=== PATIENT | male | born 1975 | race Caucasian/White ===

== ENCOUNTER 2016-10-08 16:30 | Emergency (ER) | payer SELFPAY ==
[2016-10-08 17:11] VITALS: BP 110/76
--- NOTE | 2016-10-08 17:54 | Emergency Department Report ---
Entered by LYUDMILA PADGETT, acting as scribe for VANDANA THOMPSON NP. HPI - General Chief Complaint: Back Pain/Injury Time Seen by Provider: 10/08/16 17:28 - HPI HPI: 40 y/o male with no significant PMHx c/o low back pain that began 1 day ago. Patient rates pain an 8/10 in severity, which he describes as aching in quality. Patient denies any trauma or injury to back. Denies incontinence, nausea, numbness, and tingling. Denies any radiation of pain. Patient states he is tired, and he requests a work excuse. NKDA. ED Past Medical Hx - Past Medical History Previous Medical History?: No - Social History Smoking Status: Current Every Day Smoker Substance Use Type: None - Medications Home Medications: Home Medications Medication Instructions Recorded Confirmed Last Taken Type Clindamycin [Clindamycin CAP] 300 mg PO Q6H #40 capsule 02/04/13 Unknown Rx HYDROcodone/APAP 5-325 [[place] 1 each PO Q6HR PRN #12 tablet 02/04/13 Unknown Rx 5/325 mg] Ibuprofen [Motrin 800 MG tab] 800 mg PO TID PRN #30 tablet 12/23/14 Unknown Rx Sulfamethoxazole/Trimethoprim 1 each PO BID #20 tablet 02/19/15 Unknown Rx [Bactrim DS TAB] Terbinafine HCl [Lamisil At] 30 gm TP BID #1 tube 04/11/15 Unknown Rx Cyclobenzaprine [Flexeril] 10 mg PO TID PRN #30 tablet 10/08/16 Unknown Rx ED Review of Systems ROS: Stated complaint: BACK PAIN/HEADACHE/DIZZINESS/FATIGUE Other details as noted in HPI Constitutional: no symptoms reported. denies: chills, fever, weakness Eyes: denies: eye pain, eye discharge, vision change ENT: denies: ear pain, throat pain Respiratory: denies: cough, shortness of breath, wheezing Cardiovascular: denies: chest pain, palpitations Endocrine: no symptoms reported Gastrointestinal: denies: abdominal pain, nausea, diarrhea, other (incontinence) Genitourinary: denies: urgency, dysuria Musculoskeletal: back pain (low back pain). denies: joint swelling, arthralgia Skin: denies: rash, lesions Neurological: denies: headache, weakness, numbness, paresthesias, other ( tingling) Psychiatric: denies: anxiety, depression Hematological/Lymphatic: denies: easy bleeding, easy bruising Physical Exam - Physical Exam Vital Signs: Vital Signs 10/08/16 17:08 Temperature 98.5 F Pulse Rate 82 Respiratory 16 Rate Blood Pressure 110/76 O2 Sat by Pulse 100 Oximetry General: General: well nourished, well developed, 40 year old male in no acute distress and nontoxic in appearance Physical Exam: Head: Normocephalic, atraumatic Mouth: Moist mucous membranes Nose: Normal external appearance, no drainage. Neck: Supple, No adenopathy Ears: Normal external inspection. Eyes: Bilateral pupils equal and reactive to light, bilateral EOM intact. Bilateral sclera and conjunctiva without injection. Normal accommodation. Lungs: Clear to auscultation bilaterally, no rhonchi, wheezes, or rales. Normal work of breathing. No use of accessory muscles Back: Normal inspection. FROM. No vertebral or paraspinal tenderness. Extremities: No CCE. +2 pulses. No neurovascular compromise Cardiovascular: S1-S2, regular rate, regular rhythm. No murmurs. 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 Critical care attestation.: If time is entered above; I have spent that time in minutes in the direct care of this critically ill patient, excluding procedure time. ED Disposition Clinical Impression: Strain of muscle, fascia and tendon of lower back, initial encounter Disposition: TO HOME OR SELFCARE Is pt being admited?: No Does the pt Need Aspirin: No Condition: Good Instructions: Low Back Strain (ED) Prescriptions: Cyclobenzaprine [Flexeril] 10 mg PO TID PRN #30 tablet PRN Reason: Muscle Spasm Forms: Work/School Release Form(ED) Time of Disposition: 17:54 This documentation as recorded by the DAYRON hernandez JASMINE,accurately reflects the service I personally performed and the decisions made by , VANDANA THOMPSON, HERMAN.
== END 2016-10-08 19:12 | disposition home or self-care (01) ==
LOC: ED 16:30
DX: S39.012A Strain of muscle, fascia and tendon of lower back, initial encounter (principal); F17.200 Nicotine dependence, unspecified, uncomplicated; X58.XXXA Exposure to other specified factors, initial encounter; Y93.9 Activity, unspecified; Y92.9 Unspecified place or not applicable; Y99.9 Unspecified external cause status
CPT/HCPCS: 99282

== ENCOUNTER 2016-11-06 18:43 | Emergency (ER) | payer SELFPAY ==
[2016-11-06 19:49] VITALS: BP 128/69
[2016-11-06 20:01] LABS: Basophils % (Auto) 0.8 % (0.0-1.8); Eosinophils % (Auto) 4.2 % (0.0-4.3); Hematocrit 42.1 % (35.5-45.6); Hemoglobin 13.7 gm/dl (11.8-15.2); Mean Corpuscular HGB Conc 33 % (32-34); Mean Corpuscular Hemoglobin 29 pg (28-32); Mean Corpuscular Volume 89 fl (84-94); Platelet Count 281 K/mm3 (140-440); Red Blood Count 4.75 M/mm3 (3.65-5.03); Red Cell Distribution Width 13.4 % (13.2-15.2); White Blood Count 14.9 K/mm3 (4.5-11.0)
[2016-11-06 20:17] LABS: Alanine Aminotransferase 21 units/L (7-56); Albumin 4.3 g/dL (3.9-5); Albumin/Globulin Ratio 1.3 %; Alkaline Phosphatase 56 units/L (35-129); Anion Gap 16 mmol/L; BUN/Creatinine Ratio 14.44; Bilirubin,Total < 0.20 mg/dL (0.1-1.2); Blood Urea Nitrogen 13 mg/dL (9-20); Calcium 9.5 mg/dL (8.4-10.2); Carbon Dioxide 28 mmol/L (22-30); Chloride 105.7 mmol/L (98-107); Glucose 69 mg/dL (75-100); Lipase 24 units/L (13-60); Potassium 4.1 mmol/L (3.6-5.0); Sodium 146 mmol/L (137-145); Total Protein 7.5 g/dL (6.3-8.2)
[2016-11-06 20:53] LABS: Bilirubin,Urine NEG (Negative); Blood,Urine NEG (Negative); Ketones,Urine NEG (Negative); Leukocyte Esterase,Urine MOD (Negative); Mucus,Urine FEW /HPF; Nitrite,Urine NEG (Negative); Protein,Urine <15 mg/dL mg/dL (Negative); Urobilinogen,Urine < 2.0 mg/dL (<2.0)
--- NOTE | 2016-11-07 17:08 | ED Elopement Review ---
ED Pt Elopement review - Results review Lab results: Laboratory Tests 11/06/16 11/06/16 11/06/16 19:52 19:52 20:14 WBC 14.9 H RBC 4.75 Hgb 13.7 Hct 42.1 MCV 89 MCH 29 MCHC 33 RDW 13.4 Plt Count 281 Lymph % (Auto) 21.1 [place] % (Auto) 6.1 Eos % (Auto) 4.2 Baso % (Auto) 0.8 Lymph # 3.1 [place] # 0.9 H Eos # 0.6 H Baso # 0.1 Seg Neutrophils % 67.8 Seg Neutrophils # 10.1 H Sodium 146 H Potassium 4.1 Chloride 105.7 Carbon Dioxide 28 Anion Gap 16 BUN 13 Creatinine 0.9 Estimated GFR > 60 BUN/Creatinine Ratio 14.44 Glucose 69 L Calcium 9.5 Total Bilirubin < 0.20 AST 17 ALT 21 Alkaline Phosphatase 56 Total Protein 7.5 Albumin 4.3 Albumin/Globulin Ratio 1.3 Lipase 24 Urine Color Yellow Urine Turbidity Clear Urine pH 5.0 Ur Specific Iron 1.016 Urine Protein <15 mg/dl Urine Glucose (UA) Neg Urine Ketones Neg Urine Blood Neg Urine Nitrite Neg Urine Bilirubin Neg Urine Urobilinogen < 2.0 Ur Leukocyte Esterase Mod Urine WBC (Auto) 6.0 Urine RBC (Auto) 3.0 U Epithel Cells (Auto) < 1.0 Urine Mucus Few - Call Back decision Pt Call Back Decision: Pt to F/U with PMD
== END 2016-11-07 00:49 | disposition left against medical advice (07) ==
LOC: ED 18:43
DX: K21.9 Gastro-esophageal reflux disease without esophagitis (principal); Z53.21 Procedure and treatment not carried out due to patient leaving prior to being seen by health care provider
CPT/HCPCS: 36415; 80053; 81001; 83690; 85025

== ENCOUNTER 2016-11-16 13:20 | Emergency (ER) | payer SELFPAY ==
--- NOTE | 2016-11-16 13:59 | Emergency Department Report ---
Chief Complaint: Nausea/Vomiting/Diarrhea Stated Complaint: LT ARM RASH /HEADACHE/LOOSE STOOL Time Seen by Provider: 11/16/16 13:56 - HPI History of Present Illness: pt states he has had diarrhea x 1 week. pt also c/o rash to left arm - ROS Review of Systems: + fatigue - gu symptoms - abd pain - Exam Physical Exam: pt looks well, non toxic steady gait scabs noted to L FA MSE screening note: Focused history and physical exam performed. Due to findings the following was ordered: labs ED Disposition for MSE Condition: Stable
[2016-11-16 14:00] VITALS: BP 107/67
[2016-11-16 14:56] LABS: Basophils % (Auto) 1.4 % (0.0-1.8); Eosinophils % (Auto) 6.7 % (0.0-4.3); Hematocrit 43.2 % (35.5-45.6); Hemoglobin 14.5 gm/dl (11.8-15.2); Mean Corpuscular HGB Conc 34 % (32-34); Mean Corpuscular Hemoglobin 30 pg (28-32); Mean Corpuscular Volume 89 fl (84-94); Platelet Count 301 K/mm3 (140-440); Red Blood Count 4.86 M/mm3 (3.65-5.03); Red Cell Distribution Width 13.6 % (13.2-15.2); White Blood Count 8.2 K/mm3 (4.5-11.0)
[2016-11-16 15:10] LABS: Alanine Aminotransferase 20 units/L (7-56); Albumin 4.2 g/dL (3.9-5); Albumin/Globulin Ratio 1.2 %; Alkaline Phosphatase 51 units/L (35-129); Anion Gap 14 mmol/L; BUN/Creatinine Ratio 12.22; Blood Urea Nitrogen 11 mg/dL (9-20); Calcium 9.4 mg/dL (8.4-10.2); Carbon Dioxide 31 mmol/L (22-30); Chloride 99.1 mmol/L (98-107); Glucose 85 mg/dL (75-100); Lipase 33 units/L (13-60); Potassium 3.9 mmol/L (3.6-5.0); Sodium 140 mmol/L (137-145); Total Protein 7.7 g/dL (6.3-8.2)
[2016-11-16] MEDS ORDERED: DECADRON IM ONE (17:52)
[2016-11-16] MEDS ORDERED: BENADRYL PO ONE (17:52)
--- NOTE | 2016-11-16 18:40 | Emergency Department Report ---
ED Rash HPI - HPI Chief Complaint: Skin Rash Stated Complaint: LT ARM RASH /HEADACHE/LOOSE STOOL Time Seen by Provider: 11/16/16 13:56 Duration: 1 week Location: Upper Extremities (left inner forearm) Suspected Cause: Plant Rash Symptoms: Yes Itching, No Facial Swelling, No Tongue/Oral Swelling, No Breathing Difficulties, No Choking Sensation, No Wheezing/Dyspnea, No Peeling, No Blistering, No Fever, No Lightheaded, No Malaise, No Myalgias Severity: mild Other History: 41 year old male presents to ED with left forearm rash consistent with poison [place]. patient states he was having diarrhea which is starting to resolve. patient denies abdominal pain, N/V, fevers. patient states he went camping in the [facility] last week. patient is stable, neurologically intact and in no acute distress. ED Review of Systems ROS: Stated complaint: LT ARM RASH /HEADACHE/LOOSE STOOL Other details as noted in HPI Constitutional: denies: chills, fever Eyes: denies: eye pain, eye discharge, vision change ENT: denies: ear pain, throat pain Respiratory: denies: cough, shortness of breath, wheezing Cardiovascular: denies: chest pain, palpitations Endocrine: no symptoms reported Gastrointestinal: diarrhea. denies: abdominal pain, nausea Genitourinary: denies: urgency, dysuria Musculoskeletal: denies: back pain, joint swelling, arthralgia Skin: rash. denies: lesions Neurological: denies: headache, weakness, paresthesias Psychiatric: denies: anxiety, depression Hematological/Lymphatic: denies: easy bleeding, easy bruising ED Past Medical Hx - Past Medical History Previous Medical History?: Yes Additional medical history: acid reflux - Surgical History Past Surgical History?: No - Social History Smoking Status: Current Every Day Smoker Substance Use Type: Alcohol - Medications Home Medications: Home Medications Medication Instructions Recorded Confirmed Last Taken Type Clindamycin [Clindamycin CAP] 300 mg PO Q6H #40 capsule 02/04/13 Unknown Rx HYDROcodone/APAP 5-325 [[place] 1 each PO Q6HR PRN #12 tablet 02/04/13 Unknown Rx 5/325 mg] Ibuprofen [Motrin 800 MG tab] 800 mg PO TID PRN #30 tablet 12/23/14 Unknown Rx Sulfamethoxazole/Trimethoprim 1 each PO BID #20 tablet 02/19/15 Unknown Rx [Bactrim DS TAB] Terbinafine HCl [Lamisil At] 30 gm TP BID #1 tube 04/11/15 Unknown Rx Cyclobenzaprine [Flexeril] 10 mg PO TID PRN #30 tablet 10/08/16 Unknown Rx Triamcinolone 0.1% [Kenalog 0.1% 1 applic TP TID #1 tube 11/16/16 Unknown Rx CREAM] Rash Exam - Exam General: Vital signs noted. No distress. Alert and acting appropriately. HEENT: No Periorbital Edema, No Conjuctival Injection, No Chemosis, No Perioral Edema, No Tongue Edema, No Uvular Edema, No Compromised Airway, No Drooling Lungs: Yes Good Air Exchange (Normal Breath Sounds), No Wheezes, No [place]chi, No Stridor, No Cough, No Labored Respirations, No Retractions, No Use of Accessory Muscles, No Other Abnormal Lung Sounds Heart: Yes Regular, No Murmur Skin: Yes Maculopapular Rash, No Urticarial Rash, No Morbilliform rash, No [place] (e), No Excoriations, No Weeping, No Tenderness, No Erythema, No Edema, No Encrustations Other: Positive: Abdomen Normal, Neurologic Normal, Musculoskeletal Normal ED Course Vital Signs 11/16/16 13:55 Temperature 98.4 F Pulse Rate 65 Respiratory 20 Rate Blood Pressure 107/67 O2 Sat by Pulse 99 Oximetry ED Medical Decision Making - Lab Data Result diagrams: 11/16/16 14:39 11/16/16 14:39 - Medical Decision Making 41 year old male presents to ED with left forearm rash consistent with poison [place]. patient states rash is beginning to resolve but still itches. patient states he had diarrhea 2 weeks ago but it is also starting to resolve. I have offered to collect stool sample from patient and patient has refused stating " he has to go to work and doesnt have to defecate right now". patient is stable, neurologically intact and in no acute distress. Critical care attestation.: If time is entered above; I have spent that time in minutes in the direct care of this critically ill patient, excluding procedure time. ED Disposition Clinical Impression: Poison [place] dermatitis Disposition: DC-01 TO HOME OR SELFCARE Is pt being admited?: No Does the pt Need Aspirin: No Condition: Stable Prescriptions: Triamcinolone 0.1% [Kenalog 0.1% CREAM] 1 applic TP TID #1 tube Referrals: PRIMARY CARE,MD [Primary Care Provider] - 3-5 Days Forms: Work/School Release Form(ED)
== END 2016-11-16 18:31 | disposition home or self-care (01) ==
LOC: ED 13:20
DX: L23.7 Allergic contact dermatitis due to plants, except food (principal); K21.9 Gastro-esophageal reflux disease without esophagitis; F17.200 Nicotine dependence, unspecified, uncomplicated
CPT/HCPCS: 36415; 80053; 83690; 85025; 96372; 99283; J1100

== ENCOUNTER 2016-12-15 14:40 | Emergency (ER) | payer OTHER ==
--- NOTE | 2016-12-15 15:20 | Emergency Department Report ---
Chief Complaint: Headache Stated Complaint: FATIGUE/HEADACHE/DISORIENTED/WEAK Time Seen by Provider: 12/15/16 15:18 - HPI History of Present Illness: pt states he was seen 1 month ago for similar symptoms - ROS Review of Systems: + fatigue - diarrhea - Exam Vital Signs: Vital Signs 12/15/16 15:11 Temperature 98.5 F Pulse Rate 91 H Respiratory 16 Rate Blood Pressure 99/56 O2 Sat by Pulse 98 Oximetry Physical Exam: pt looks well, non toxic. no acute distress MSE screening note: Focused history and physical exam performed. Due to findings the following was ordered: labs ED Disposition for MSE Condition: Stable
[2016-12-15 15:35] LABS: Basophils % (Auto) 0.9 % (0.0-1.8); Eosinophils % (Auto) 3.8 % (0.0-4.3); Hematocrit 41.1 % (35.5-45.6); Hemoglobin 13.8 gm/dl (11.8-15.2); Mean Corpuscular HGB Conc 34 % (32-34); Mean Corpuscular Hemoglobin 30 pg (28-32); Mean Corpuscular Volume 88 fl (84-94); Platelet Count 304 K/mm3 (140-440); Red Blood Count 4.69 M/mm3 (3.65-5.03); Red Cell Distribution Width 13.7 % (13.2-15.2); White Blood Count 13.5 K/mm3 (4.5-11.0)
[2016-12-15 15:57] LABS: Alanine Aminotransferase 23 units/L (7-56); Albumin/Globulin Ratio 1.3 %; Alkaline Phosphatase 48 units/L (35-129); Anion Gap 17 mmol/L; BUN/Creatinine Ratio 15.55; Blood Urea Nitrogen 14 mg/dL (9-20); Carbon Dioxide 29 mmol/L (22-30); Chloride 103.3 mmol/L (98-107); Creatine Kinase 109 units/L (55-170); Glucose 71 mg/dL (75-100); Potassium 3.8 mmol/L (3.6-5.0); Sodium 145 mmol/L (137-145); Total Protein 7.2 g/dL (6.3-8.2)
--- NOTE | 2016-12-15 21:21 | Emergency Department Report ---
ED Headache HPI - General Chief Complaint: Headache Stated Complaint: FATIGUE/HEADACHE/DISORIENTED/WEAK Time Seen by Provider: 12/15/16 15:18 - History of Present Illness Initial Comments: Patient is a 21-year-old male with no past medical history who presents to the ED complaining of headache for the past week. Patient states headache is generalized in nature. Patient states that C [place] spell tired and generalized body ache. Patient states his work and nonstop since tired all the time. He denies fevers/chills/nausea/vomiting/abdominal pain/chest pain/runny nose/ throat pain Timing/Duration: 1 week Quality: moderate Head Injury Location: frontal Recent Head Trauma: no recent headache/trauma Associated Symptoms: denies: confusion, fatigue, facial pain, nasal congestion, rash, seizures Allergies/Adverse Reactions: Allergies No Known Allergies Allergy (Unverified 02/04/13 16:17) Home Medications: Ambulatory Orders Clindamycin [Clindamycin CAP] 300 mg PO Q6H #40 capsule 02/04/13 HYDROcodone/APAP 5-325 [[place] 5/325 mg] 1 each PO Q6HR PRN #12 tablet 02/04/13 Sulfamethoxazole/Trimethoprim [Bactrim DS TAB] 1 each PO BID #20 tablet Terbinafine HCl [Lamisil At] 30 gm TP BID #1 tube 04/11/15 Triamcinolone 0.1% [Kenalog 0.1% CREAM] 1 applic TP TID #1 tube 11/16/16 Cyclobenzaprine [Flexeril 10 MG TAB] 10 mg PO QHS PRN #20 tablet 12/15/16 Ibuprofen [Motrin 800 MG tab] 800 mg PO TID PRN #30 tablet 12/15/16 Pseudoephedrine ER [Sudafed 12 Hr] 120 mg PO BID #30 tablet.er 12/15/16 ED Review of Systems ROS: Stated complaint: FATIGUE/HEADACHE/DISORIENTED/WEAK Other details as noted in HPI Constitutional: denies: chills, fever Eyes: denies: eye pain, eye discharge, vision change ENT: denies: ear pain, throat pain Respiratory: denies: cough, shortness of breath, wheezing Cardiovascular: denies: chest pain, palpitations Endocrine: no symptoms reported Gastrointestinal: denies: abdominal pain, nausea, diarrhea Genitourinary: denies: urgency, dysuria, frequency, hematuria Musculoskeletal: denies: back pain, joint swelling, arthralgia Skin: denies: rash, lesions Neurological: headache. denies: weakness, numbness, paresthesias, confusion Psychiatric: denies: anxiety, depression Hematological/Lymphatic: denies: easy bleeding, easy bruising ED Past Medical Hx - Past Medical History Previous Medical History?: Yes Additional medical history: acid reflux - Surgical History Past Surgical History?: No - Social History Smoking Status: Current Every Day Smoker Substance Use Type: None - Medications Home Medications: Home Medications Medication Instructions Recorded Confirmed Last Taken Type Clindamycin [Clindamycin CAP] 300 mg PO Q6H #40 capsule 02/04/13 Unknown Rx HYDROcodone/APAP 5-325 [[place] 1 each PO Q6HR PRN #12 tablet 02/04/13 Unknown Rx 5/325 mg] Sulfamethoxazole/Trimethoprim 1 each PO BID #20 tablet 02/19/15 Unknown Rx [Bactrim DS TAB] Terbinafine HCl [Lamisil At] 30 gm TP BID #1 tube 04/11/15 Unknown Rx Triamcinolone 0.1% [Kenalog 0.1% 1 applic TP TID #1 tube 11/16/16 Unknown Rx CREAM] Cyclobenzaprine [Flexeril 10 MG 10 mg PO QHS PRN #20 tablet 12/15/16 Unknown Rx TAB] Ibuprofen [Motrin 800 MG tab] 800 mg PO TID PRN #30 tablet 12/15/16 Unknown Rx Pseudoephedrine ER [Sudafed 12 Hr] 120 mg PO BID #30 tablet.er 12/15/16 Unknown Rx ED Physical Exam - General Limitations: No Limitations General appearance: alert, in no apparent distress - Head Head exam: Present: atraumatic, normocephalic - Eye Eye exam: Present: normal appearance, PERRL, EOMI - ENT ENT exam: Present: mucous membranes moist - Neck Neck exam: Present: normal inspection, full ROM - Respiratory Respiratory exam: Present: normal lung sounds bilaterally. Absent: respiratory distress, wheezes, rales, rhonchi - Cardiovascular Cardiovascular Exam: Present: regular rate, normal rhythm. Absent: systolic murmur, diastolic murmur, rubs, gallop - GI/Abdominal GI/Abdominal exam: Present: soft, normal bowel sounds - Rectal Rectal exam: Present: deferred - Extremities Exam Extremities exam: Present: normal inspection - Back Exam Back exam: Present: normal inspection - Neurological Exam Neurological exam: Present: alert, oriented X3, CN II-XII intact, normal gait, reflexes normal - Expanded Neurological Exam Expanded Patient oriented to: Present: person, place, time Speech: Present: fluid speech Cranial nerves: EOM's Intact: Normal, Facial Sensation: Normal Cerebellar function: Finger to Nose: Normal, Heel to [place]: Normal Sensory exam: Upper Extremity Light Touch: Normal, Upper Extremity Temperature: Normal, Lower Extremity Light Touch: Normal, Lower Extremity Temperature: Normal Motor strength exam: RUE: 5, LUE: 5, RLE: 5, LLE: 5 DTR: knee (R): 2+, knee (L): 2+ Best Eye Response ([place]): (4) open spontaneously Best Motor Response ([place]): (6) obeys commands Best Verbal Response ([place]): (5) oriented [place] Total: 15 - Psychiatric Psychiatric exam: Present: normal affect, normal mood - Skin Skin exam: Present: warm, dry, intact, normal color. Absent: rash ED Course Vital Signs 12/15/16 12/15/16 15:11 21:55 Temperature 98.5 F 98.1 F Pulse Rate 91 H 96 H Respiratory 16 16 Rate Blood Pressure 99/56 Blood Pressure 109/71 [Right] O2 Sat by Pulse 98 97 Oximetry ED Medical Decision Making - Lab Data Result diagrams: 12/15/16 15:21 12/15/16 15:21 Laboratory Last Values WBC 13.5 K/mm3 (4.5-11.0) H 12/15/16 15:21 RBC 4.69 M/mm3 (3.65-5.03) 12/15/16 15:21 Hgb 13.8 gm/dl (11.8-15.2) 12/15/16 15:21 Hct 41.1 % (35.5-45.6) 12/15/16 15:21 MCV 88 fl (84-94) 12/15/16 15:21 MCH 30 pg (28-32) 12/15/16 15:21 MCHC 34 % (32-34) 12/15/16 15:21 RDW 13.7 % (13.2-15.2) 12/15/16 15:21 Plt Count 304 K/mm3 (140-440) 12/15/16 15:21 Lymph % (Auto) 26.6 % (13.4-35.0) 12/15/16 15:21 [place] % (Auto) 8.3 % (0.0-7.3) H 12/15/16 15:21 Eos % (Auto) 3.8 % (0.0-4.3) 12/15/16 15:21 Baso % (Auto) 0.9 % (0.0-1.8) 12/15/16 15:21 Lymph # 3.6 K/mm3 (1.2-5.4) 12/15/16 15:21 [place] # 1.1 K/mm3 (0.0-0.8) H 12/15/16 15:21 Eos # 0.5 K/mm3 (0.0-0.4) H 12/15/16 15:21 Baso # 0.1 K/mm3 (0.0-0.1) 12/15/16 15:21 Seg Neutrophils % 60.4 % (40.0-70.0) 12/15/16 15:21 Seg Neutrophils # 8.1 K/mm3 (1.8-7.7) H 12/15/16 15:21 Sodium 145 mmol/L (137-145) 12/15/16 15:21 Potassium 3.8 mmol/L (3.6-5.0) 12/15/16 15:21 Chloride 103.3 mmol/L (98-107) 12/15/16 15:21 Carbon Dioxide 29 mmol/L (22-30) 12/15/16 15:21 Anion Gap 17 mmol/L 12/15/16 15:21 BUN 14 mg/dL (9-20) 12/15/16 15:21 Creatinine 0.9 mg/dL (0.8-1.5) 12/15/16 15:21 Estimated GFR > 60 ml/min 12/15/16 15:21 BUN/Creatinine Ratio 15.55 % 12/15/16 15:21 Glucose 71 mg/dL (75-100) L 12/15/16 15:21 Calcium 9.0 mg/dL (8.4-10.2) 08/15/17 15:21 Total Bilirubin 0.20 mg/dL (0.1-1.2) 12/15/16 15:21 AST 15 units/L (5-40) 12/15/16 15:21 ALT 23 units/L (7-56) 12/15/16 15:21 Alkaline Phosphatase 48 units/L (35-129) 12/15/16 15:21 Total Creatine Kinase 109 units/L (55-170) 12/15/16 15:21 Total Protein 7.2 g/dL (6.3-8.2) 12/15/16 15:21 Albumin 4.0 g/dL (3.9-5) 12/15/16 15:21 Albumin/Globulin Ratio 1.3 % 12/15/16 15:21 - Medical Decision Making 41-year-old male presents today acutely stress headache ED course: Labs all within normal limits. Discussed findings with the patient. Discussed with patient to get proper rest. Discussed home medications Discussed the patient's symptoms worsen or new symptoms arise to return to ED for evaluation Discuss to follow up with primary care physician. Vital signs are normal patient is in no acute distress Critical care attestation.: If time is entered above; I have spent that time in minutes in the direct care of this critically ill patient, excluding procedure time. ED Disposition Clinical Impression: Headache Qualifiers: Headache type: tension-type Headache chronicity pattern: acute headache Intractability: not intractable Qualified Code(s): G44.209 - Tension-type headache, unspecified, not intractable Disposition: DC-01 TO HOME OR SELFCARE Is pt being admited?: No Does the pt Need Aspirin: No Condition: Stable Instructions: Sinusitis (ED), Acute Headache (ED), Cold Symptoms (ED) Prescriptions: Cyclobenzaprine [Flexeril 10 MG TAB] 10 mg PO QHS PRN #20 tablet PRN Reason: Muscle Spasm Ibuprofen [Motrin 800 MG tab] 800 mg PO TID PRN #30 tablet PRN Reason: Pain Pseudoephedrine ER [Sudafed 12 Hr] 120 mg PO BID #30 tablet.er Referrals: PRIMARY CARE, [Primary Care Provider] - 3-5 Days [facility] [Outside] - 3-5 Days [facility] [Outside] - 3-5 Days [facility] [Outside] - 3-5 Days Forms: Work/School Release Form(ED) Time of Disposition: 21:30
[2016-12-15 22:19] VITALS: BP 109/71
== END 2016-12-15 21:55 | disposition home or self-care (01) ==
LOC: ED 14:40
DX: G44.209 Tension-type headache, unspecified, not intractable (principal); K21.9 Gastro-esophageal reflux disease without esophagitis; F17.200 Nicotine dependence, unspecified, uncomplicated
CPT/HCPCS: 36415; 80053; 82550; 85025; 99283

== ENCOUNTER 2017-02-01 17:53 | Emergency (ER) | payer OTHER ==
[2017-02-01 20:34] LABS: Basophils % (Auto) 0.8 % (0.0-1.8); Hematocrit 40.8 % (35.5-45.6); Hemoglobin 13.7 gm/dl (11.8-15.2); Mean Corpuscular HGB Conc 34 % (32-34); Mean Corpuscular Hemoglobin 29 pg (28-32); Mean Corpuscular Volume 87 fl (84-94); Platelet Count 302 K/mm3 (140-440); Red Cell Distribution Width 13.5 % (13.2-15.2); White Blood Count 12.2 K/mm3 (4.5-11.0)
[2017-02-01 20:52] LABS: Alanine Aminotransferase 22 units/L (7-56); Albumin 4.3 g/dL (3.9-5); Albumin/Globulin Ratio 1.3 %; Alkaline Phosphatase 49 units/L (35-129); Anion Gap 17 mmol/L; BUN/Creatinine Ratio 21; Blood Urea Nitrogen 19 mg/dL (9-20); Calcium 9.3 mg/dL (8.4-10.2); Carbon Dioxide 27 mmol/L (22-30); Chloride 102.6 mmol/L (98-107); Glucose 102 mg/dL (75-100); Potassium 4.2 mmol/L (3.6-5.0); Sodium 142 mmol/L (137-145); Total Protein 7.6 g/dL (6.3-8.2)
--- NOTE | 2017-02-02 07:35 | Emergency Department Report ---
ED Abdominal Pain HPI - General Chief Complaint: Abdominal Pain Stated Complaint: DIARRHEA/ANDRES/FATIGUE Time Seen by Provider: 02/02/17 07:35 Source: patient Mode of arrival: Ambulatory Limitations: No Limitations - History of Present Illness Initial Comments: Patient reports that he has diarrhea 1 day. He said he had diarrhea 3 times today and stated that he ate something bad. He also stated that he is overwhelmed at times. Denies any suicide or homicide ideation. Past medical history of acid reflux denies any nausea or vomiting. He said he was having some abdominal cramping but none now. Denies any urinary burning frequency or urgency. Denies any blood in his urine. Denies any back pain. Denies any fever or chills MD Complaint: abdominal pain ( which has resolved), other (diarrhea) Onset/Timin -: days(s) Location: [facility] Radiation: none Migration to: no migration Severity scale (0 -10): 0 Quality: cramping Consistency: intermittent Context: possible food poisoning Associated Symptoms: diarrhea. denies: nausea, vomiting, fever, chills, constipation, dysuria, hematemesis, hematochezia, melena, hematuria, anorexia, syncope Treatments Prior to Arrival: other (none) - Related Data Previous Rx's Medication Instructions Recorded Last Taken Type Clindamycin [Clindamycin CAP] 300 mg PO Q6H #40 capsule 02/04/13 Unknown Rx HYDROcodone/APAP 5-325 [[place] 1 each PO Q6HR PRN #12 tablet 02/04/13 Unknown Rx 5/325 mg] Terbinafine HCl [Lamisil At] 30 gm TP BID #1 tube 04/11/15 Unknown Rx Triamcinolone 0.1% [Kenalog 0.1% 1 applic TP TID #1 tube 11/16/16 Unknown Rx CREAM] Cyclobenzaprine [Flexeril 10 MG 10 mg PO QHS PRN #20 tablet 12/15/16 Unknown Rx TAB] Ibuprofen [Motrin 800 MG tab] 800 mg PO TID PRN #30 tablet 12/15/16 Unknown Rx Pseudoephedrine ER [Sudafed 12 Hr] 120 mg PO BID #30 tablet.er 12/15/16 Unknown Rx Sulfamethoxazole/Trimethoprim 1 each PO BID #10 tablet 02/02/17 Unknown Rx [Bactrim DS TAB] Allergies Allergy/AdvReac Type Severity Reaction Status Date / Time No Known Allergies Allergy Unverified 02/04/13 16:17 ED Review of Systems ROS: Stated complaint: DIARRHEA/ANDRES/FATIGUE Other details as noted in HPI Comment: All other systems reviewed and negative Constitutional: no symptoms reported Respiratory: no symptoms reported Cardiovascular: denies: chest pain, palpitations, dyspnea on exertion, orthopnea , edema, syncope, paroxysmal nocturnal dyspnea Gastrointestinal: abdominal pain (episodic abdominal cramps), diarrhea. denies : nausea, vomiting, constipation, hematemesis, melena, hematochezia Genitourinary: denies: urgency, dysuria, frequency, hematuria, discharge, testicular pain, testicular mass Musculoskeletal: denies: back pain, arthralgia Skin: denies: rash Neurological: denies: headache, abnormal gait, vertigo Psychiatric: anxiety (sometimes) ED Past Medical Hx - Past Medical History Previous Medical History?: Yes Additional medical history: acid reflux - Surgical History Past Surgical History?: No - Family History Family history: no significant - Social History Smoking Status: Never Smoker Substance Use Type: None - Medications Home Medications: Home Medications Medication Instructions Recorded Confirmed Last Taken Type Clindamycin [Clindamycin CAP] 300 mg PO Q6H #40 capsule 02/04/13 Unknown Rx HYDROcodone/APAP 5-325 [[place] 1 each PO Q6HR PRN #12 tablet 02/04/13 Unknown Rx 5/325 mg] Terbinafine HCl [Lamisil At] 30 gm TP BID #1 tube 04/11/15 Unknown Rx Triamcinolone 0.1% [Kenalog 0.1% 1 applic TP TID #1 tube 11/16/16 Unknown Rx CREAM] Cyclobenzaprine [Flexeril 10 MG 10 mg PO QHS PRN #20 tablet 12/15/16 Unknown Rx TAB] Ibuprofen [Motrin 800 MG tab] 800 mg PO TID PRN #30 tablet 12/15/16 Unknown Rx Pseudoephedrine ER [Sudafed 12 Hr] 120 mg PO BID #30 tablet.er 12/15/16 Unknown Rx Sulfamethoxazole/Trimethoprim 1 each PO BID #10 tablet 02/02/17 Unknown Rx [Bactrim DS TAB] ED Physical Exam - General Limitations: No Limitations General appearance: alert, in no apparent distress - Head Head exam: Present: atraumatic, normocephalic, normal inspection - Eye Eye exam: Present: normal appearance, PERRL, EOMI. Absent: scleral icterus, conjunctival injection, periorbital swelling, periorbital tenderness Pupils: Present: normal accommodation - ENT ENT exam: Present: normal exam, normal orophraynx, mucous membranes moist, TM's normal bilaterally, normal external ear exam - Neck Neck exam: Present: normal inspection, full ROM. Absent: tenderness, meningismus, lymphadenopathy - Respiratory Respiratory exam: Present: normal lung sounds bilaterally. Absent: respiratory distress, chest wall tenderness - Cardiovascular Cardiovascular Exam: Present: regular rate, normal rhythm, normal heart sounds. Absent: systolic murmur, diastolic murmur - GI/Abdominal GI/Abdominal exam: Present: soft, normal bowel sounds. Absent: distended, tenderness, guarding, rebound, rigid, organomegaly, mass, bruit, pulsatile mass , hernia - Extremities Exam Extremities exam: Present: normal inspection, full ROM, normal capillary refill , other (no clubbing cyanosis or edema. Pulses). Absent: tenderness, pedal edema, joint swelling, calf tenderness - Back Exam Back exam: Present: normal inspection, full ROM. Absent: tenderness, CVA tenderness (R), CVA tenderness (L), muscle spasm, paraspinal tenderness, vertebral tenderness, rash noted - Neurological Exam Neurological exam: Present: alert, oriented X3, normal gait, reflexes normal. Absent: motor sensory deficit - Psychiatric Psychiatric exam: Present: normal affect, normal mood - Skin Skin exam: Present: warm, dry, intact, normal color. Absent: rash ED Course Vital Signs 02/01/17 02/01/17 02/02/17 19:58 20:01 07:52 Temperature 98.2 F 98.2 F 97.8 F Pulse Rate 93 H 99 H 62 Respiratory 18 18 17 Rate Blood Pressure 123/56 Blood Pressure 123/56 95/51 [Left] O2 Sat by Pulse 99 98 98 Oximetry 02/02/17 02/02/17 09:49 11:12 Temperature Pulse Rate Respiratory Rate Blood Pressure Blood Pressure 98/78 110/65 [Left] O2 Sat by Pulse Oximetry - Reevaluation(s) Reevaluation #1: 02/02/17 09:46 Patient orally challenge at emergency room and was able to tolerate. He had no diarrhea since is then emergency room. I discussed with patient that he is mildly dehydrated and needs to drink more fluids and that he has a small amount of white blood cells in his urine. Patient blood pressure is low suspect from dehydration therefore he will receive 1 L of normal saline and will be if reevaluated. Reevaluation #2: 02/02/17 11:30 Patient received 1 L of IV fluid for dehydration and low blood pressure which is low blood pressure has resolved. He is stable at present and I discussed with him that he needs to follow up with primary care physician in 2-3 days. ED Medical Decision Making - Lab Data Result diagrams: 02/01/17 20:19 02/01/17 20:19 Lab Results 02/01/17 02/01/17 02/02/17 Range/Units 20:19 20:19 08:50 WBC 12.2 H (4.5-11.0) K/mm3 RBC 4.70 (3.65-5.03) M/mm3 Hgb 13.7 (11.8-15.2) gm/dl Hct 40.8 (35.5-45.6) % MCV 87 (84-94) fl MCH 29 (28-32) pg MCHC 34 (32-34) % RDW 13.5 (13.2-15.2) % Plt Count 302 (140-440) K/mm3 Lymph % (Auto) 22.2 (13.4-35.0) % [place] % (Auto) 9.4 H (0.0-7.3) % Eos % (Auto) 4.0 (0.0-4.3) % Baso % (Auto) 0.8 (0.0-1.8) % Lymph # 2.7 (1.2-5.4) K/mm3 [place] # 1.1 H (0.0-0.8) K/mm3 Eos # 0.5 H (0.0-0.4) K/mm3 Baso # 0.1 (0.0-0.1) K/mm3 Seg Neutrophils % 63.6 (40.0-70.0) % Seg Neutrophils # 7.8 H (1.8-7.7) K/mm3 Sodium 142 (137-145) mmol/L Potassium 4.2 (3.6-5.0) mmol/L Chloride 102.6 (98-107) mmol/L Carbon Dioxide 27 (22-30) mmol/L Anion Gap 17 mmol/L BUN 19 (9-20) mg/dL Creatinine 0.9 (0.8-1.5) mg/dL Estimated GFR > 60 ml/min BUN/Creatinine Ratio 21 % Glucose 102 H (75-100) mg/dL Calcium 9.3 (8.4-10.2) mg/dL Total Bilirubin 0.30 (0.1-1.2) mg/dL AST 21 (5-40) units/L ALT 22 (7-56) units/L Alkaline Phosphatase 49 (35-129) units/L Total Protein 7.6 (6.3-8.2) g/dL Albumin 4.3 (3.9-5) g/dL Albumin/Globulin Ratio 1.3 % Urine Color Yellow (Yellow) Urine Turbidity Clear (Clear) Urine pH 5.0 (5.0-7.0) Ur Specific [place] 1.031 H (1.003-1.030) Urine Protein <15 mg/dl (Negative) mg/dL Urine Glucose (UA) Neg (Negative) mg/dL Urine Ketones Tr (Negative) mg/dL Urine Blood Neg (Negative) Urine Nitrite Neg (Negative) Urine Bilirubin Neg (Negative) Urine Urobilinogen 2.0 (<2.0) mg/dL Ur Leukocyte Esterase Neg (Negative) Urine WBC (Auto) 8.0 H (0.0-6.0) /HPF Urine RBC (Auto) 6.0 (0.0-6.0) /HPF U Epithel Cells (Auto) < 1.0 (0-13.0) /HPF Hyaline Casts 3 /LPF Urine Mucus 3+ /HPF Urine culture sent - Medical Decision Making ED course: PT With episodic diarrhea that has resolved. Pt Also with episodic abdominal cramping to left lower quadrant which has resolved. Lab work showed that he has mild elevation in white count at 12.2. His chemistry is stable and his urine show that he has mild dehydration with trace ketone and specific gravity of 1.031 urine white count is at 8.0 which is elevated. leukocyte Estrace is negative blood is negative nitrate is negative. Discussed with patient that he needs to increase his fluid intake and I discussed with him his urine results. I instructed him that I'll put him on medication for urinary tract infection and he needs to drink at least 2-3 L of fluid per day. Blood pressure is mildly low and he is asymptomatic. He received 1 L of normal saline and now his blood pressures normalized. I instructed patient that he definitely to follow-up and if he does not have a primary care that he'll need to follow-up at [facility] ([place], [place]). He was nondistended discharge diagnosis and treatment plan and discharged home in stable condition with prescription for Bactrim to treat white blood cell in urine. Critical care attestation.: If time is entered above; I have spent that time in minutes in the direct care of this critically ill patient, excluding procedure time. ED Disposition Clinical Impression: Abdominal cramping, Mild dehydration, Pyuria Diarrhea Qualifiers: Diarrhea type: unspecified type Qualified Code(s): R19.7 - Diarrhea, unspecified Disposition: TO HOME OR SELFCARE Is pt being admited?: No Does the pt Need Aspirin: No Condition: Stable Instructions: Dehydration (ED), Urinary Tract Infection in Men (ED), Gastroenteritis (ED), Food Poisoning (ED), Acute Diarrhea (ED), Nutrition Tips for Relief of Diarrhea (ED) Additional Instructions: Pls eats diet to include banana rice, applesauce and toast You have white blood cell in urine and he should takeBactrim DSone tablet twice a day for 5 days Make sure he drinks 2-3 L of fluid per day Follow-up at [facility] ([place], [place]) in 2-3 days Prescriptions: Sulfamethoxazole/Trimethoprim [Bactrim DS TAB] 1 each PO BID #10 tablet Referrals: PRIMARY CARE, [Primary Care Provider] - 2-3 Days [facility] [Outside] - 2-3 Days Forms: Work/School Release Form(ED)
[2017-02-02 09:07] LABS: Bilirubin,Urine NEG (Negative); Blood,Urine NEG (Negative); Ketones,Urine TR mg/dL (Negative); Leukocyte Esterase,Urine NEG (Negative); Mucus,Urine 3+ /HPF; Nitrite,Urine NEG (Negative); Protein,Urine <15 mg/dL mg/dL (Negative)
[2017-02-02] MEDS ORDERED: NACL 0.9% 1000 ML 1,000 ML IV ONE (09:51)
[2017-02-02 11:12] VITALS: BP 110/65
== END 2017-02-02 11:45 | disposition home or self-care (01) ==
LOC: ED 17:53
DX: R19.7 Diarrhea, unspecified (principal); R10.32 Left lower quadrant pain; N39.0 Urinary tract infection, site not specified; E86.0 Dehydration; K21.9 Gastro-esophageal reflux disease without esophagitis
CPT/HCPCS: 36415; 80053; 81001; 85025; 87086; 96360; 99283; J7030

== ENCOUNTER 2017-03-18 11:53 | Emergency (ER) | payer SELFPAY ==
[2017-03-18 12:19] LABS: Basophils % (Auto) 0.7 % (0.0-1.8); Eosinophils % (Auto) 3.3 % (0.0-4.3); Hematocrit 45.6 % (35.5-45.6); Hemoglobin 14.9 gm/dl (11.8-15.2); Mean Corpuscular HGB Conc 33 % (32-34); Mean Corpuscular Hemoglobin 29 pg (28-32); Mean Corpuscular Volume 88 fl (84-94); Platelet Count 331 K/mm3 (140-440); Red Blood Count 5.17 M/mm3 (3.65-5.03); Red Cell Distribution Width 13.5 % (13.2-15.2); White Blood Count 10.3 K/mm3 (4.5-11.0)
[2017-03-18 12:41] LABS: Alanine Aminotransferase 19 units/L (7-56); Albumin 4.1 g/dL (3.9-5); Albumin/Globulin Ratio 1.2 %; Alkaline Phosphatase 49 units/L (35-129); Anion Gap 12 mmol/L; BUN/Creatinine Ratio 13; Blood Urea Nitrogen 10 mg/dL (9-20); Carbon Dioxide 30 mmol/L (22-30); Glucose 125 mg/dL (75-100); Lipase 18 units/L (13-60); Potassium 4.4 mmol/L (3.6-5.0); Sodium 140 mmol/L (137-145); Total Protein 7.4 g/dL (6.3-8.2)
[2017-03-18 15:38] LABS: Bilirubin,Urine NEG (Negative); Blood,Urine SM (Negative); Ketones,Urine TR mg/dL (Negative); Leukocyte Esterase,Urine TR (Negative); Mucus,Urine 3+ /HPF; Nitrite,Urine NEG (Negative); Protein,Urine <15 mg/dL mg/dL (Negative)
--- NOTE | 2017-03-18 20:25 | Emergency Department Report ---
ED General Adult HPI - General Chief complaint: Headache Stated complaint: DIZZY,FEVER,HEADACHE Time Seen by Provider: 03/18/17 20:24 Source: patient, RN notes reviewed, old records reviewed Mode of arrival: Ambulatory Limitations: No Limitations - History of Present Illness Initial comments: This is a 41-year-old male who was previously unknown to this provider. He presents to the ER with headache. The headache is frontal and throbbing. It is not sudden or thunderclap in nature. It did not reach maximal intensity within an hour. The patient gets frequent headaches. The patient denies neck pain, neck stiffness, he does admits to subjective fever at home, which he further clarifies this is a temperature of 98. There is no ear pain, there is no tinnitus, there is no sore throat, there is no chest pain or abdominal pain, there is no testicular pain, the patient does not endorse irritative or obstructive urinary symptoms. The headache is frontal, throbbing, does not radiate anywhere, and does not have exacerbating or relieving factors. Patient indicates "I think it's a sinus headache." -: Gradual Location: head, face Radiation: non-radiation Severity scale (0 -10): 6 Quality: aching Consistency: constant Improves with: none Worsens with: none Associated Symptoms: headaches, loss of appetite, malaise, weakness. denies: confusion, chest pain, cough, diaphoresis, fever/chills - Related Data Previous Rx's Medication Instructions Recorded Last Taken Type Clindamycin [Clindamycin CAP] 300 mg PO Q6H #40 capsule 02/04/13 Unknown Rx HYDROcodone/APAP 5-325 [[place] 1 each PO Q6HR PRN #12 tablet 02/04/13 Unknown Rx 5/325 mg] Terbinafine HCl [Lamisil At] 30 gm TP BID #1 tube 04/11/15 Unknown Rx Triamcinolone 0.1% [Kenalog 0.1% 1 applic TP TID #1 tube 11/16/16 Unknown Rx CREAM] Cyclobenzaprine [Flexeril 10 MG 10 mg PO QHS PRN #20 tablet 12/15/16 Unknown Rx TAB] Ibuprofen [Motrin 800 MG tab] 800 mg PO TID PRN #30 tablet 12/15/16 Unknown Rx Pseudoephedrine ER [Sudafed 12 Hr] 120 mg PO BID #30 tablet.er 12/15/16 Unknown Rx Sulfamethoxazole/Trimethoprim 1 each PO BID #10 tablet 02/02/17 Unknown Rx [Bactrim DS TAB] Fluticasone [Flonase] 1 spray NS QDAY #1 bottle 03/18/17 Unknown Rx Ibuprofen [Motrin] 600 mg PO Q8H PRN #30 tablet 03/18/17 Unknown Rx Allergies Allergy/AdvReac Type Severity Reaction Status Date / Time No Known Allergies Allergy Unverified 02/04/13 16:17 ED Review of Systems ROS: Stated complaint: DIZZY,FEVER,HEADACHE Other details as noted in HPI Constitutional: malaise Eyes: denies: eye discharge ENT: denies: epistaxis Respiratory: denies: wheezing Cardiovascular: denies: chest pain Gastrointestinal: denies: abdominal pain Genitourinary: denies: testicular pain Musculoskeletal: as per HPI Skin: as per HPI Neurological: headache, weakness ED Past Medical Hx - Past Medical History Previous Medical History?: Yes Additional medical history: acid reflux, dizziness, fatigue, stressed out - Surgical History Past Surgical History?: No - Social History Smoking Status: Current Every Day Smoker Substance Use Type: Non Opiate Pain, Other - Medications Home Medications: Home Medications Medication Instructions Recorded Confirmed Last Taken Type Clindamycin [Clindamycin CAP] 300 mg PO Q6H #40 capsule 02/04/13 Unknown Rx HYDROcodone/APAP 5-325 [[place] 1 each PO Q6HR PRN #12 tablet 02/04/13 Unknown Rx 5/325 mg] Terbinafine HCl [Lamisil At] 30 gm TP BID #1 tube 04/11/15 Unknown Rx Triamcinolone 0.1% [Kenalog 0.1% 1 applic TP TID #1 tube 11/16/16 Unknown Rx CREAM] Cyclobenzaprine [Flexeril 10 MG 10 mg PO QHS PRN #20 tablet 12/15/16 Unknown Rx TAB] Ibuprofen [Motrin 800 MG tab] 800 mg PO TID PRN #30 tablet 12/15/16 Unknown Rx Pseudoephedrine ER [Sudafed 12 Hr] 120 mg PO BID #30 tablet.er 12/15/16 Unknown Rx Sulfamethoxazole/Trimethoprim 1 each PO BID #10 tablet 02/02/17 Unknown Rx [Bactrim DS TAB] Fluticasone [Flonase] 1 spray NS QDAY #1 bottle 03/18/17 Unknown Rx Ibuprofen [Motrin] 600 mg PO Q8H PRN #30 tablet 03/18/17 Unknown Rx ED Physical Exam - General Limitations: No Limitations General appearance: alert, in no apparent distress - Head Head exam: Present: atraumatic, normocephalic - Eye Eye exam: Present: normal appearance, PERRL, EOMI, other (visual acuity intact to finger counting, color perception, reading at a close distance). Absent: nystagmus - ENT ENT exam: Present: normal exam, normal orophraynx, mucous membranes moist, TM's normal bilaterally, normal external ear exam, other (there is no mastoid tenderness. No vesicles noted.) - Neck Neck exam: Present: normal inspection, full ROM. Absent: tenderness, meningismus - Respiratory Respiratory exam: Present: normal lung sounds bilaterally. Absent: respiratory distress, chest wall tenderness, accessory muscle use, decreased breath sounds, prolonged expiratory - Cardiovascular Cardiovascular Exam: Present: regular rate, normal rhythm, normal heart sounds. Absent: systolic murmur, diastolic murmur, rubs, gallop - GI/Abdominal GI/Abdominal exam: Present: soft, normal bowel sounds. Absent: distended, tenderness, guarding, rebound, rigid, pulsatile mass - Rectal Rectal exam: Present: deferred - exam: Present: normal inspection. Absent: testicular tenderness External exam: Present: normal external exam, other (there is no testicular tenderness. There is normal testicular lie bilaterally. There is normal cremasteric reflex bilaterally.). Absent: erythema, swelling - Extremities Exam Extremities exam: Present: normal inspection, full ROM. Absent: normal capillary refill, pedal edema, joint swelling, calf tenderness - Back Exam Back exam: Present: normal inspection, full ROM. Absent: CVA tenderness (R), paraspinal tenderness - Neurological Exam Neurological exam: Present: alert, oriented X3, CN II-XII intact, normal gait, other (Extraocular movements intact. Tongue midline. No facial droop. Facial sensation intact to light touch in the V1, V2, V3 distribution bilaterally. 5 and 5 strength in 4 extremities.. Sensation is intact to light touch in 4 extremities.). Absent: motor sensory deficit - Psychiatric Psychiatric exam: Present: normal affect, normal mood - Skin Skin exam: Present: warm, dry, intact, normal color. Absent: rash ED Course Vital Signs 03/18/17 03/18/17 03/18/17 11:57 16:54 21:38 Temperature 98.4 F 98.3 F Pulse Rate 90 81 Respiratory 18 18 16 Rate Blood Pressure 111/77 104/66 Blood Pressure [Left] O2 Sat by Pulse 98 97 Oximetry 03/18/17 21:55 Temperature 97.4 F L Pulse Rate 79 Respiratory 18 Rate Blood Pressure Blood Pressure 98/61 [Left] O2 Sat by Pulse 96 Oximetry ED Medical Decision Making - Lab Data Result diagrams: 03/18/17 12:06 03/18/17 12:06 Vital Signs 03/18/17 03/18/17 11:57 16:54 Temperature 98.4 F 98.3 F Pulse Rate 90 81 Respiratory 18 18 Rate Blood Pressure 111/77 104/66 O2 Sat by Pulse 98 97 Oximetry Lab Results 03/18/17 03/18/17 03/18/17 Range/Units 12:06 12:06 15:22 WBC 10.3 (4.5-11.0) K/mm3 RBC 5.17 H (3.65-5.03) M/mm3 Hgb 14.9 (11.8-15.2) gm/dl Hct 45.6 (35.5-45.6) % MCV 88 (84-94) fl MCH 29 (28-32) pg MCHC 33 (32-34) % RDW 13.5 (13.2-15.2) % Plt Count 331 (140-440) K/mm3 Lymph % (Auto) 18.1 (13.4-35.0) % [place] % (Auto) 9.6 H (0.0-7.3) % Eos % (Auto) 3.3 (0.0-4.3) % Baso % (Auto) 0.7 (0.0-1.8) % Lymph # 1.9 (1.2-5.4) K/mm3 [place] # 1.0 H (0.0-0.8) K/mm3 Eos # 0.3 (0.0-0.4) K/mm3 Baso # 0.1 (0.0-0.1) K/mm3 Seg Neutrophils % 68.3 (40.0-70.0) % Seg Neutrophils # 7.0 (1.8-7.7) K/mm3 Sodium 140 (137-145) mmol/L Potassium 4.4 (3.6-5.0) mmol/L Chloride 102.0 (98-107) mmol/L Carbon Dioxide 30 (22-30) mmol/L Anion Gap 12 mmol/L BUN 10 (9-20) mg/dL Creatinine 0.8 (0.8-1.5) mg/dL Estimated GFR > 60 ml/min BUN/Creatinine Ratio 13 % Glucose 125 H (75-100) mg/dL Calcium 9.0 (8.4-10.2) mg/dL Total Bilirubin 0.40 (0.1-1.2) mg/dL AST 18 (5-40) units/L ALT 19 (7-56) units/L Alkaline Phosphatase 49 (35-129) units/L Total Protein 7.4 (6.3-8.2) g/dL Albumin 4.1 (3.9-5) g/dL Albumin/Globulin Ratio 1.2 % Lipase 18 (13-60) units/L Urine Color Yellow (Yellow) Urine Turbidity Clear (Clear) Urine pH 5.0 (5.0-7.0) Ur Specific [place] 1.024 (1.003-1.030) Urine Protein <15 mg/dl (Negative) mg/dL Urine Glucose (UA) Neg (Negative) mg/dL Urine Ketones Tr (Negative) mg/dL Urine Blood Sm (Negative) Urine Nitrite Neg (Negative) Urine Bilirubin Neg (Negative) Urine Urobilinogen 4.0 (<2.0) mg/dL Ur Leukocyte Esterase Tr (Negative) Urine WBC (Auto) 7.0 H (0.0-6.0) /HPF Urine RBC (Auto) 11.0 (0.0-6.0) /HPF Urine Mucus 3+ /HPF - Medical Decision Making Differential diagnoses, including but not limited to: Migraine headache, tension headache, cluster headache, poor sleep hygiene Sinusitis Assessment and plan: 41-year-old male with a clinically benign headache, not history of fairly consistent with subarachnoid hemorrhage or stroke or meningitis. He is afebrile with reassuring vital signs and has been observed in the ER for a prolonged. Of time without clinical decompensation. When I first went to evaluate the patient he was sleeping on his stretcher and in no distress. On my history, he denies urinary symptoms, his genital exam is unremarkable, his urinalysis is reviewed and appreciated, but given lack of symptoms and unremarkable exam, it is not appear to be any emergent need to further address this, and this can be followed up as an outpatient. To me, the patient has no complaints of chest pain or "acid reflux." He has had no documented fever in the ER, his laboratory studies are unremarkable, his neurologic exam is unremarkable, and he does not appear to be an emergent condition at this time. The patient will be discharged, he can follow-up as an outpatient primary care doctor, return precautions were reviewed. Critical care attestation.: If time is entered above; I have spent that time in minutes in the direct care of this critically ill patient, excluding procedure time. ED Disposition Clinical Impression: Headache Disposition: [id number] TO HOME OR SELFCARE Is pt being admited?: No Does the pt Need Aspirin: No Condition: Stable Instructions: Sinusitis (ED) Additional Instructions: Take the medication as needed/directed. Follow up with your primary care doctor within the next 3-4 weeks. Return to the ER right away with new pain, worsened pain, migration of pain, fevers, chills, lethargy, irritability, projectile vomiting, change in mental status, inability to tolerate liquid feeds , confusion. Prescriptions: Fluticasone [Flonase] 1 spray NS QDAY #1 bottle Ibuprofen [Motrin] 600 mg PO Q8H PRN #30 tablet PRN Reason: Pain Referrals: PRIMARY MD NATALIO [Primary Care Provider] - 3-5 Days TITA ANDERSON MD [Staff Physician] - 3-5 Days [facility] [Provider Group] - 3-5 Days Forms: Work/School Release Form(ED)
[2017-03-18] MEDS ORDERED: TORADOL IM ONE (20:34)
[2017-03-18 22:00] VITALS: BP 98/61
== END 2017-03-18 21:59 | disposition home or self-care (01) ==
LOC: ED 11:53
DX: R51 Headache (principal); F17.200 Nicotine dependence, unspecified, uncomplicated
CPT/HCPCS: 36415; 80053; 81001; 83690; 85025; 93005; 93010; 96372; 99283; J1885

== ENCOUNTER 2017-03-24 15:22 | Emergency (ER) | payer SELFPAY ==
[2017-03-24 16:44] LABS: Bilirubin,Urine NEG (Negative); Blood,Urine NEG (Negative); Ketones,Urine NEG (Negative); Leukocyte Esterase,Urine NEG (Negative); Mucus,Urine FEW /HPF; Nitrite,Urine NEG (Negative); Protein,Urine <15 mg/dL mg/dL (Negative); Urobilinogen,Urine < 2.0 mg/dL (<2.0)
--- NOTE | 2017-03-24 19:16 | Emergency Department Report ---
ED Male HPI - General Chief complaint: Urogenital-Male Stated complaint: POSSIBLE UTI/ABDOMINAL PAIN Time Seen by Provider: 03/24/17 19:09 Source: patient Mode of arrival: Ambulatory Limitations: No Limitations - History of Present Illness MD Complaint: testicle pain -: Gradual, days(s) Location: right testicle, left testicle Radiation: none Severity: mild Severity scale (0 -10): 4 Quality: aching Consistency: constant Improves with: none Worsens with: none denies other symptoms - Related Data Sexually active: Yes (His sex partner was diagnosed with "UTI" and vaginal discharge recently) Previous Rx's Medication Instructions Recorded Last Taken Type Clindamycin [Clindamycin CAP] 300 mg PO Q6H #40 capsule 02/04/13 Unknown Rx HYDROcodone/APAP 5-325 [[place] 1 each PO Q6HR PRN #12 tablet 02/04/13 Unknown Rx 5/325 mg] Terbinafine HCl [Lamisil At] 30 gm TP BID #1 tube 04/11/15 Unknown Rx Triamcinolone 0.1% [Kenalog 0.1% 1 applic TP TID #1 tube 11/16/16 Unknown Rx CREAM] Cyclobenzaprine [Flexeril 10 MG 10 mg PO QHS PRN #20 tablet 12/15/16 Unknown Rx TAB] Ibuprofen [Motrin 800 MG tab] 800 mg PO TID PRN #30 tablet 12/15/16 Unknown Rx Pseudoephedrine ER [Sudafed 12 Hr] 120 mg PO BID #30 tablet.er 12/15/16 Unknown Rx Sulfamethoxazole/Trimethoprim 1 each PO BID #10 tablet 02/02/17 Unknown Rx [Bactrim DS TAB] Fluticasone [Flonase] 1 spray NS QDAY #1 bottle 03/18/17 Unknown Rx Ibuprofen [Motrin] 600 mg PO Q8H PRN #30 tablet 03/18/17 Unknown Rx Allergies Allergy/AdvReac Type Severity Reaction Status Date / Time No Known Allergies Allergy Unverified 02/04/13 16:17 ED Review of Systems ROS: Stated complaint: POSSIBLE UTI/ABDOMINAL PAIN Other details as noted in HPI Constitutional: denies: chills, fever Eyes: denies: eye pain, eye discharge, vision change ENT: denies: ear pain, throat pain Respiratory: denies: cough, shortness of breath, wheezing Cardiovascular: denies: chest pain, palpitations Endocrine: no symptoms reported Gastrointestinal: denies: abdominal pain, nausea, diarrhea Genitourinary: denies: urgency, dysuria Musculoskeletal: denies: back pain, joint swelling, arthralgia Skin: denies: rash, lesions Neurological: denies: headache, weakness, paresthesias Psychiatric: denies: anxiety, depression Hematological/Lymphatic: denies: easy bleeding, easy bruising ED Past Medical Hx - Past Medical History Previous Medical History?: No Additional medical history: acid reflux, dizziness, fatigue, stressed out - Surgical History Past Surgical History?: No - Social History Smoking Status: Current Every Day Smoker Substance Use Type: None - Medications Home Medications: Home Medications Medication Instructions Recorded Confirmed Last Taken Type Clindamycin [Clindamycin CAP] 300 mg PO Q6H #40 capsule 02/04/13 Unknown Rx HYDROcodone/APAP 5-325 [[place] 1 each PO Q6HR PRN #12 tablet 02/04/13 Unknown Rx 5/325 mg] Terbinafine HCl [Lamisil At] 30 gm TP BID #1 tube 04/11/15 Unknown Rx Triamcinolone 0.1% [Kenalog 0.1% 1 applic TP TID #1 tube 11/16/16 Unknown Rx CREAM] Cyclobenzaprine [Flexeril 10 MG 10 mg PO QHS PRN #20 tablet 12/15/16 Unknown Rx TAB] Ibuprofen [Motrin 800 MG tab] 800 mg PO TID PRN #30 tablet 12/15/16 Unknown Rx Pseudoephedrine ER [Sudafed 12 Hr] 120 mg PO BID #30 tablet.er 12/15/16 Unknown Rx Sulfamethoxazole/Trimethoprim 1 each PO BID #10 tablet 02/02/17 Unknown Rx [Bactrim DS TAB] Fluticasone [Flonase] 1 spray NS QDAY #1 bottle 03/18/17 Unknown Rx Ibuprofen [Motrin] 600 mg PO Q8H PRN #30 tablet 03/18/17 Unknown Rx ED Physical Exam - General Limitations: No Limitations General appearance: alert, in no apparent distress - Head Head exam: Present: atraumatic, normocephalic - Eye Eye exam: Present: normal appearance - ENT ENT exam: Present: mucous membranes moist - Neck Neck exam: Present: normal inspection - Respiratory Respiratory exam: Present: normal lung sounds bilaterally. Absent: respiratory distress - Cardiovascular Cardiovascular Exam: Present: regular rate, normal rhythm. Absent: systolic murmur, diastolic murmur, rubs, gallop - GI/Abdominal GI/Abdominal exam: Present: soft, normal bowel sounds - Rectal Rectal exam: Present: deferred - Extremities Exam Extremities exam: Present: normal inspection - Back Exam Back exam: Present: normal inspection - Neurological Exam Neurological exam: Present: alert, oriented X3 - Psychiatric Psychiatric exam: Present: normal affect, normal mood - Skin Skin exam: Present: warm, dry, intact, normal color. Absent: rash ED Course Vital Signs 03/24/17 16:24 Temperature 98.2 F Pulse Rate 90 Blood Pressure 115/70 O2 Sat by Pulse 100 Oximetry Critical care attestation.: If time is entered above; I have spent that time in minutes in the direct care of this critically ill patient, excluding procedure time. ED Disposition Clinical Impression: Urethritis, nonspecific Disposition: DC-01 TO HOME OR SELFCARE Is pt being admited?: No Does the pt Need Aspirin: No Condition: Good Instructions: Nonspecific Urethritis in Men (ED) Referrals: PRIMARY CARE, [Primary Care Provider] - 3-5 Days Forms: Work/School Release Form(ED), STI Treatment and Prevention
[2017-03-24] MEDS ORDERED: ROCEPHIN IM ONE (19:23)
[2017-03-24] MEDS ORDERED: XYLOCAINE 1% MPF 5 mL INFILTRATI ONE (19:23)
[2017-03-24 20:00] VITALS: BP 114/75
== END 2017-03-24 19:58 | disposition home or self-care (01) ==
LOC: ED 15:22
DX: N34.2 Other urethritis (principal); F17.200 Nicotine dependence, unspecified, uncomplicated
CPT/HCPCS: 81001; 96372; 99283; J0696

== ENCOUNTER 2017-03-28 23:02 | Emergency (ER) | payer SELFPAY ==
--- NOTE | 2017-03-29 02:29 | Emergency Department Report ---
ED Lower Extremity HPI - General Chief Complaint: Extremity Injury, Lower Stated Complaint: LACERATION ON RIGHT FOOT Time Seen by Provider: 03/29/17 02:25 Source: patient Mode of arrival: Ambulatory Limitations: No Limitations - History of Present Illness Initial Comments: 41 YO MALE WHO WORKS WITH [employer] AND FEET STAYS WET HAS HAD FOOT PAIN FOR 1 WEEK. HE FEEL THAT HIS RIGHT FOOT MUST HAVE BEEN CUT WHEN HE WAS BAREFOOT OUTSIDE AT HOME AND THEN HE WENT TO WORK AND GOT CHICKEN WATER INTO HIS BOOTS.. Complaint: foot injury -: week(s) (1) Injury: Foot: Right Type of Injury: unknown Place: work Severity: mild Improves With: nothing Worsens With: weight bearing, movement Context: other (UNKNOW WHEN HE OR IF HE GOT INJURIED) Associated Symptoms: swelling, able to partially bear weight - Related Data Previous Rx's Medication Instructions Recorded Last Taken Type Clindamycin [Clindamycin CAP] 300 mg PO Q6H #40 capsule 02/04/13 Unknown Rx HYDROcodone/APAP 5-325 [[place] 1 each PO Q6HR PRN #12 tablet 02/04/13 Unknown Rx 5/325 mg] Cyclobenzaprine [Flexeril 10 MG 10 mg PO QHS PRN #20 tablet 12/15/16 Unknown Rx TAB] Ibuprofen [Motrin 800 MG tab] 800 mg PO TID PRN #30 tablet 12/15/16 Unknown Rx Pseudoephedrine ER [Sudafed 12 Hr] 120 mg PO BID #30 tablet.er 12/15/16 Unknown Rx Sulfamethoxazole/Trimethoprim 1 each PO BID #10 tablet 02/02/17 Unknown Rx [Bactrim DS TAB] Fluticasone [Flonase] 1 spray NS QDAY #1 bottle 03/18/17 Unknown Rx Ibuprofen [Motrin] 600 mg PO Q8H PRN #30 tablet 03/18/17 Unknown Rx Terbinafine HCl [Lamisil At] 30 gm TP BID #2 tube 03/29/17 Unknown Rx Triamcinolone 0.1% [Kenalog 0.1% 1 applic TP TID #2 tube 03/29/17 Unknown Rx CREAM] Allergies Allergy/AdvReac Type Severity Reaction Status Date / Time No Known Allergies Allergy Unverified 02/04/13 16:17 ED Review of Systems ROS: Stated complaint: LACERATION ON RIGHT FOOT Other details as noted in HPI Constitutional: denies: chills, fever Eyes: denies: eye pain, eye discharge, vision change ENT: denies: ear pain, throat pain Respiratory: denies: cough, shortness of breath, wheezing Cardiovascular: denies: chest pain, palpitations Endocrine: no symptoms reported Gastrointestinal: denies: abdominal pain, nausea, diarrhea Genitourinary: denies: urgency, dysuria Musculoskeletal: denies: back pain, joint swelling, arthralgia Skin: rash, lesions (CRACKED AND RED BILATERAL FEET, OLD HEALED SCAR ON INTERFACE BETWEEN SIDE OF FOOT AN DBOTTOM) Neurological: denies: headache, weakness, paresthesias Psychiatric: denies: anxiety, depression Hematological/Lymphatic: denies: easy bleeding, easy bruising ED Past Medical Hx - Past Medical History Additional medical history: acid reflux, dizziness, fatigue, stressed out - Social History Smoking Status: Never Smoker Substance Use Type: None - Medications Home Medications: Home Medications Medication Instructions Recorded Confirmed Last Taken Type Clindamycin [Clindamycin CAP] 300 mg PO Q6H #40 capsule 02/04/13 Unknown Rx HYDROcodone/APAP 5-325 [[place] 1 each PO Q6HR PRN #12 tablet 02/04/13 Unknown Rx 5/325 mg] Cyclobenzaprine [Flexeril 10 MG 10 mg PO QHS PRN #20 tablet 12/15/16 Unknown Rx TAB] Ibuprofen [Motrin 800 MG tab] 800 mg PO TID PRN #30 tablet 12/15/16 Unknown Rx Pseudoephedrine ER [Sudafed 12 Hr] 120 mg PO BID #30 tablet.er 12/15/16 Unknown Rx Sulfamethoxazole/Trimethoprim 1 each PO BID #10 tablet 02/02/17 Unknown Rx [Bactrim DS TAB] Fluticasone [Flonase] 1 spray NS QDAY #1 bottle 03/18/17 Unknown Rx Ibuprofen [Motrin] 600 mg PO Q8H PRN #30 tablet 03/18/17 Unknown Rx Terbinafine HCl [Lamisil At] 30 gm TP BID #2 tube 03/29/17 Unknown Rx Triamcinolone 0.1% [Kenalog 0.1% 1 applic TP TID #2 tube 03/29/17 Unknown Rx CREAM] ED Physical Exam - General Limitations: No Limitations General appearance: alert, in no apparent distress - Head Head exam: Present: atraumatic, normocephalic - Eye Eye exam: Present: normal appearance, EOMI - ENT ENT exam: Present: mucous membranes moist - Neck Neck exam: Present: normal inspection - Respiratory Respiratory exam: Present: normal lung sounds bilaterally. Absent: respiratory distress - Cardiovascular Cardiovascular Exam: Present: regular rate, normal rhythm. Absent: systolic murmur, diastolic murmur, rubs, gallop - GI/Abdominal GI/Abdominal exam: Present: soft, normal bowel sounds - Rectal Rectal exam: Present: deferred - Extremities Exam Extremities exam: Present: normal inspection, full ROM, other (MULTIPLE CRACKS ON BILATERL FEET) - Back Exam Back exam: Present: normal inspection - Neurological Exam Neurological exam: Present: alert, oriented X3 - Psychiatric Psychiatric exam: Present: normal affect, normal mood - Skin Skin exam: Present: warm, dry, intact, normal color. Absent: rash ED Course Vital Signs 03/28/17 03/28/17 03/29/17 23:04 23:07 02:50 Temperature 97.3 F L 97.3 F L 98.3 F Pulse Rate 119 H 120 H 78 Respiratory 18 18 18 Rate Blood Pressure 123/82 123/82 Blood Pressure 123/82 123/73 [Left] O2 Sat by Pulse 98 98 100 Oximetry ED Lower Extremity MDM - Radiology Data Radiology results: report reviewed (RIGHT FOOT: NEGATIVE) Critical care attestation.: If time is entered above; I have spent that time in minutes in the direct care of this critically ill patient, excluding procedure time. ED Disposition Clinical Impression: Teniasis Athletes foot Qualifiers: Laterality: bilateral Qualified Code(s): B35.3 - Tinea pedis Disposition: TO HOME OR SELFCARE Is pt being admited?: No Does the pt Need Aspirin: No Condition: Stable Instructions: Tinea Pedis (ED) Prescriptions: Terbinafine HCl [Lamisil At] 30 gm TP BID #2 tube Triamcinolone 0.1% [Kenalog 0.1% CREAM] 1 applic TP TID #2 tube Referrals: PRIMARY CARE, [Primary Care Provider] - 3-5 Days Time of Disposition: 03:45
--- NOTE | 2017-03-29 03:01 | XRay Report ---
FINAL REPORT EXAM: XR FOOT 2V RT HISTORY: fungus TECHNIQUE: AP and lateral views of the right foot were submitted. FINDINGS: There are no skeletal or soft tissue abnormalities. IMPRESSION: Normal exam.
[2017-03-29 04:27] VITALS: BP 122/74
== END 2017-03-29 04:27 | disposition home or self-care (01) ==
LOC: ED 23:02
DX: B35.3 Tinea pedis (principal)
CPT/HCPCS: 99283

== ENCOUNTER 2017-04-12 12:39 | Emergency (ER) | payer OTHER ==
[2017-04-12] MEDS ORDERED: MOTRIN PO ONE (13:56)
--- NOTE | 2017-04-12 15:23 | XRay Report ---
RIGHT ELBOW, 3 views: HISTORY: Injury. The bony architecture is intact without evidence of fracture or dislocation. No significant soft tissue abnormality is seen. IMPRESSION: Normal right elbow.
--- NOTE | 2017-04-12 19:54 | Emergency Department Report ---
ED Upper Extremity Inj HPI - General Chief Complaint: Extremity Injury, Upper Stated Complaint: RIGHT ARM PAIN Time Seen by Provider: 04/12/17 18:16 Source: patient Mode of arrival: Ambulatory Limitations: No Limitations - History of Present Illness Initial Comments: This is a 41-year-old male nontoxic, well nourished in appearance, no acute signs of distress presents to the ED with c/o of right elbow pain 1 day. Patient he was walking and slipped on ice and fell on his right elbow. Patient denies any numbness, tingling, joint redness, joint swelling, fever, chills, headache, stiff neck, abdominal pain, chest pain or shortness breath. Patient denies loss of consciousness. Denies any head trauma. Denies any allergies. Past medical history includes acid reflex, dizziness, fatigue. MD Complaint: Injury to:: right, forearm -: days(s) (1) Other Extremity Injury: Elbow: Right Other Injuries: none Place: outdoors Severity scale (0 -10): 8 Improves With: none Worsens With: none Context: fall, direct blow Associated Symptoms: denies other symptoms. denies: weakness, numbness, neck pain, suspects foreign body, nausea/vomiting, heard/felt popping sensat - Related Data Previous Rx's Medication Instructions Recorded Last Taken Type Clindamycin [Clindamycin CAP] 300 mg PO Q6H #40 capsule 02/04/13 Unknown Rx HYDROcodone/APAP 5-325 [[place] 1 each PO Q6HR PRN #12 tablet 02/04/13 Unknown Rx 5/325 mg] Cyclobenzaprine [Flexeril 10 MG 10 mg PO QHS PRN #20 tablet 12/15/16 Unknown Rx TAB] Ibuprofen [Motrin 800 MG tab] 800 mg PO TID PRN #30 tablet 12/15/16 Unknown Rx Pseudoephedrine ER [Sudafed 12 Hr] 120 mg PO BID #30 tablet.er 12/15/16 Unknown Rx Sulfamethoxazole/Trimethoprim 1 each PO BID #10 tablet 02/02/17 Unknown Rx [Bactrim DS TAB] Fluticasone [Flonase] 1 spray NS QDAY #1 bottle 03/18/17 Unknown Rx Ibuprofen [Motrin] 600 mg PO Q8H PRN #30 tablet 03/18/17 Unknown Rx Terbinafine HCl [Lamisil At] 30 gm TP BID #2 tube 03/29/17 Unknown Rx Triamcinolone 0.1% [Kenalog 0.1% 1 applic TP TID #2 tube 03/29/17 Unknown Rx CREAM] Ibuprofen [Motrin] 600 mg PO Q8H PRN #30 tablet 04/12/17 Unknown Rx Allergies Allergy/AdvReac Type Severity Reaction Status Date / Time No Known Allergies Allergy Verified 04/12/17 13:53 ED Review of Systems ROS: Stated complaint: RIGHT ARM PAIN Other details as noted in HPI Constitutional: denies: chills, fever Eyes: denies: eye pain, eye discharge, vision change ENT: denies: ear pain, throat pain Respiratory: denies: cough, shortness of breath, wheezing Cardiovascular: denies: chest pain, palpitations Endocrine: no symptoms reported Gastrointestinal: denies: abdominal pain, nausea, diarrhea Genitourinary: denies: urgency, dysuria Musculoskeletal: denies: back pain, joint swelling, arthralgia Skin: denies: rash, lesions Neurological: denies: headache, weakness, paresthesias Psychiatric: denies: anxiety, depression Hematological/Lymphatic: denies: easy bleeding, easy bruising ED Past Medical Hx - Past Medical History Additional medical history: acid reflux, dizziness, fatigue, stressed out - Surgical History Past Surgical History?: No - Social History Smoking Status: Current Every Day Smoker Substance Use Type: None - Medications Home Medications: Home Medications Medication Instructions Recorded Confirmed Last Taken Type Clindamycin [Clindamycin CAP] 300 mg PO Q6H #40 capsule 02/04/13 Unknown Rx HYDROcodone/APAP 5-325 [[place] 1 each PO Q6HR PRN #12 tablet 02/04/13 Unknown Rx 5/325 mg] Cyclobenzaprine [Flexeril 10 MG 10 mg PO QHS PRN #20 tablet 12/15/16 Unknown Rx TAB] Ibuprofen [Motrin 800 MG tab] 800 mg PO TID PRN #30 tablet 12/15/16 Unknown Rx Pseudoephedrine ER [Sudafed 12 Hr] 120 mg PO BID #30 tablet.er 12/15/16 Unknown Rx Sulfamethoxazole/Trimethoprim 1 each PO BID #10 tablet 02/02/17 Unknown Rx [Bactrim DS TAB] Fluticasone [Flonase] 1 spray NS QDAY #1 bottle 03/18/17 Unknown Rx Ibuprofen [Motrin] 600 mg PO Q8H PRN #30 tablet 03/18/17 Unknown Rx Terbinafine HCl [Lamisil At] 30 gm TP BID #2 tube 03/29/17 Unknown Rx Triamcinolone 0.1% [Kenalog 0.1% 1 applic TP TID #2 tube 03/29/17 Unknown Rx CREAM] Ibuprofen [Motrin] 600 mg PO Q8H PRN #30 tablet 04/12/17 Unknown Rx ED Physical Exam - General Limitations: No Limitations General appearance: alert, in no apparent distress - Head Head exam: Present: atraumatic, normocephalic - Eye Eye exam: Present: normal appearance, PERRL, EOMI Pupils: Present: normal accommodation - ENT ENT exam: Present: normal exam, normal orophraynx, mucous membranes moist, TM's normal bilaterally, normal external ear exam - Neck Neck exam: Present: normal inspection, full ROM. Absent: tenderness, meningismus, lymphadenopathy, thyromegaly - Respiratory Respiratory exam: Present: normal lung sounds bilaterally. Absent: respiratory distress, wheezes, rales, rhonchi, stridor, chest wall tenderness, accessory muscle use, decreased breath sounds, prolonged expiratory - Cardiovascular Cardiovascular Exam: Present: regular rate, normal rhythm, normal heart sounds. Absent: bradycardia, tachycardia, irregular rhythm, systolic murmur, diastolic murmur, rubs, gallop - GI/Abdominal GI/Abdominal exam: Present: soft, normal bowel sounds. Absent: distended, guarding, rebound, rigid, diminished bowel sounds - Rectal Rectal exam: Present: deferred - Extremities Exam Extremities exam: Present: normal inspection, full ROM, tenderness, normal capillary refill. Absent: pedal edema, joint swelling, calf tenderness - Expanded Upper Extremity Exam Left General: Present: normal inspection Shoulder Exam: Present: normal inspection, full ROM Upper Arm exam: Present: normal inspection, full ROM Elbow exam: Present: normal inspection, full ROM, tenderness. Absent: swelling , abrasion, laceration, ecchymosis, deformity, crepidus, dislocation, erythema, effusion, pain w/ pronation/supination, tenderness over radial head Forearm Wrist exam: Present: normal inspection, full ROM Hand Wrist exam: Present: normal inspection, full ROM Neuro motor exam: Present: wrist extension intact, thumb opposition intact, thumb IP flexion intact, thumb adduction intact, fingers 2-5 abduction intact Neurosensory exam: Present: 2-point discrimination, radial nerve intact, ulnar nerve intact, median nerve intact Vascular: Present: vascular compromise, normal capillary refill, radial pulse, brachial pulse, ulnar pulse - Back Exam Back exam: Present: normal inspection, full ROM. Absent: tenderness, CVA tenderness (R), CVA tenderness (L), muscle spasm, paraspinal tenderness, vertebral tenderness, rash noted - Neurological Exam Neurological exam: Present: alert, oriented X3, CN II-XII intact, normal gait, reflexes normal - Psychiatric Psychiatric exam: Present: normal affect, normal mood - Skin Skin exam: Present: warm, dry, intact, normal color. Absent: rash ED Course Vital Signs 04/12/17 13:53 Temperature 98.3 F Pulse Rate 74 Respiratory 18 Rate Blood Pressure 98/68 O2 Sat by Pulse 96 Oximetry - Reevaluation(s) Reevaluation #1: 04/12/17 19:46 Patient is speaking in full sentences with no signs of distress noted. ED Medical Decision Making - Medical Decision Making This is a 41-year-old male that presents with contusion to the right elbow. Patient is stable and was examined by me. Xray has been obtained and dictated by radiologist with normal exam. Patient was notified of xray results with no questions noted. Patient received MOtrin in the ED. Patient was instructed to follow-up with orthopedic doctor in 3-5 days or if symptoms worsen and continue to return to the ED as soon as possible. At time time of discharge, the patient does not seem toxic or ill in appearance. No acute signs of distress noted. Patient agrees to discharge treatment plan of care. No further questions noted by the patient. Critical care attestation.: If time is entered above; I have spent that time in minutes in the direct care of this critically ill patient, excluding procedure time. ED Disposition Clinical Impression: Contusion Qualifiers: Encounter type: initial encounter Contusion area: elbow Laterality: right Qualified Code(s): S50.01XA - Contusion of right elbow, initial encounter Disposition: TO HOME OR SELFCARE Is pt being admited?: No Does the pt Need Aspirin: No Condition: Stable Instructions: RICE Therapy (ED), Ibuprofen (By mouth) Additional Instructions: Follow-up with a orthopedic doctor in 3-5 days or if symptoms worsen and continue return to emergency room as soon as possible. Rest, elevate and ice extremity Prescriptions: Ibuprofen [Motrin] 600 mg PO Q8H PRN #30 tablet PRN Reason: Pain Referrals: VIRGINIE OLIVO MD [Staff Physician] - 3-5 Days CALVIN WALKER MD [Staff Physician] - 3-5 Days [facility] [Outside] - 3-[address] [facility] [Outside] - 3-5 Days Forms: Work/School Release Form(ED)
[2017-04-12] MEDS ORDERED: MOTRIN ONE (20:22)
[2017-04-12 23:00] VITALS: BP 108/74
== END 2017-04-12 20:15 | disposition home or self-care (01) ==
LOC: ED 12:39
DX: S50.01XA Contusion of right elbow, initial encounter (principal); F17.200 Nicotine dependence, unspecified, uncomplicated; K21.9 Gastro-esophageal reflux disease without esophagitis; W18.00XA Striking against unspecified object with subsequent fall, initial encounter; Y93.89 Activity, other specified; Y99.8 Other external cause status; Y92.89 Other specified places as the place of occurrence of the external cause
CPT/HCPCS: 99283

== ENCOUNTER 2017-05-05 14:35 | Emergency (ER) | payer OTHER ==
[2017-05-05 22:01] VITALS: BP 101/57
[2017-05-05] MEDS ORDERED: MOTRIN PO ONE (23:41)
--- NOTE | 2017-05-05 23:46 | Emergency Department Report ---
ED Back Pain/Injury HPI - General Chief Complaint: Back Pain/Injury Stated Complaint: BACK PAIN/RT LEG PAIN Time Seen by Provider: 05/05/17 23:24 Source: patient Mode of arrival: Ambulatory Limitations: No Limitations - History of Present Illness Complaint: back pain, back injury -: Sudden Time: 03:00 Similar Symptoms Previously: No Place: street Radiation: none Severity: moderate Severity scale (0 -10): 8 Quality: aching Consistency: intermittent Improves With: supine Worsens With: movement Associated Symptoms: denies: confusion, numbness, difficulty urinating, shortness of breath Treatments Prior to Arrival: NSAIDS - Related Data Previous Rx's Medication Instructions Recorded Last Taken Type Clindamycin [Clindamycin CAP] 300 mg PO Q6H #40 capsule 02/04/13 Unknown Rx HYDROcodone/APAP 5-325 [Bradley 1 each PO Q6HR PRN #12 tablet 02/04/13 Unknown Rx 5/325 mg] Cyclobenzaprine [Flexeril 10 MG 10 mg PO QHS PRN #20 tablet 12/15/16 Unknown Rx TAB] Ibuprofen [Motrin 800 MG tab] 800 mg PO TID PRN #30 tablet 12/15/16 Unknown Rx Pseudoephedrine ER [Sudafed 12 Hr] 120 mg PO BID #30 tablet.er 12/15/16 Unknown Rx Sulfamethoxazole/Trimethoprim 1 each PO BID #10 tablet 02/02/17 Unknown Rx [Bactrim DS TAB] Fluticasone [Flonase] 1 spray NS QDAY #1 bottle 03/18/17 Unknown Rx Ibuprofen [Motrin] 600 mg PO Q8H PRN #30 tablet 03/18/17 Unknown Rx Terbinafine HCl [Lamisil At] 30 gm TP BID #2 tube 03/29/17 Unknown Rx Triamcinolone 0.1% [Kenalog 0.1% 1 applic TP TID #2 tube 03/29/17 Unknown Rx CREAM] Ibuprofen [Motrin] 600 mg PO Q8H PRN #30 tablet 04/12/17 Unknown Rx Ibuprofen 800 mg PO TID PRN #30 tablet 05/05/17 Unknown Rx Allergies Allergy/AdvReac Type Severity Reaction Status Date / Time No Known Allergies Allergy Verified 04/12/17 13:53 ED Review of Systems ROS: Stated complaint: BACK PAIN/RT LEG PAIN Other details as noted in HPI Comment: All other systems reviewed and negative ED Past Medical Hx - Past Medical History Previous Medical History?: Yes Hx Diabetes: No Hx Deep Vein Thrombosis: No Hx Pulmonary Embolism: No Hx GERD: No Hx Liver Disease: No Hx Renal Disease: No Hx of Cancer: No Hx Sickle Cell Disease: No Hx Arthritis: No Hx Headaches / Migraines: No Hx Seizures: No Hx Kidney Stones: No Hx Psychiatric Treatment: No Hx Asthma: No Hx COPD: No Hx Tuberculosis: No Hx Dementia: No Hx HIV: No Additional medical history: acid reflux, dizziness, fatigue, stressed out, back pain - Surgical History Past Surgical History?: No Hx Coronary Stent: No Hx Open Heart Surgery: No Hx Pacemaker: No Hx Internal Defibrillator: No Hx Cholecystectomy: No Hx Appendectomy: No Hx Breast Surgery: No - Social History Smoking Status: Current Every Day Smoker - Medications Home Medications: Home Medications Medication Instructions Recorded Confirmed Last Taken Type Clindamycin [Clindamycin CAP] 300 mg PO Q6H #40 capsule 02/04/13 Unknown Rx HYDROcodone/APAP 5-325 [Bradley 1 each PO Q6HR PRN #12 tablet 02/04/13 Unknown Rx 5/325 mg] Cyclobenzaprine [Flexeril 10 MG 10 mg PO QHS PRN #20 tablet 12/15/16 Unknown Rx TAB] Ibuprofen [Motrin 800 MG tab] 800 mg PO TID PRN #30 tablet 12/15/16 Unknown Rx Pseudoephedrine ER [Sudafed 12 Hr] 120 mg PO BID #30 tablet.er 12/15/16 Unknown Rx Sulfamethoxazole/Trimethoprim 1 each PO BID #10 tablet 02/02/17 Unknown Rx [Bactrim DS TAB] Fluticasone [Flonase] 1 spray NS QDAY #1 bottle 03/18/17 Unknown Rx Ibuprofen [Motrin] 600 mg PO Q8H PRN #30 tablet 03/18/17 Unknown Rx Terbinafine HCl [Lamisil At] 30 gm TP BID #2 tube 03/29/17 Unknown Rx Triamcinolone 0.1% [Kenalog 0.1% 1 applic TP TID #2 tube 03/29/17 Unknown Rx CREAM] Ibuprofen [Motrin] 600 mg PO Q8H PRN #30 tablet 04/12/17 Unknown Rx Ibuprofen 800 mg PO TID PRN #30 tablet 05/05/17 Unknown Rx ED Physical Exam - General Limitations: No Limitations General appearance: alert, in no apparent distress - Head Head exam: Present: normocephalic - Eye Eye exam: Present: normal appearance Pupils: Present: normal accommodation - Neck Neck exam: Present: normal inspection. Absent: tenderness - Respiratory Respiratory exam: Present: normal lung sounds bilaterally - Cardiovascular Cardiovascular Exam: Present: normal heart sounds - Extremities Exam Extremities exam: Present: normal inspection, normal capillary refill - Back Exam Back exam: Present: normal inspection, full ROM, tenderness, paraspinal tenderness - Neurological Exam Neurological exam: Present: alert, CN II-XII intact - Psychiatric Psychiatric exam: Present: normal affect - Skin Skin exam: Present: warm, dry, intact ED Course Vital Signs 05/05/17 05/05/17 16:37 22:00 Temperature 98.1 F 98.6 F Pulse Rate 85 81 Respiratory 18 18 Rate Blood Pressure 107/57 Blood Pressure 101/57 [Right] O2 Sat by Pulse 99 98 Oximetry ED Medical Decision Making - Medical Decision Making Migue is a 41-year-old male who presents to the emergency room complaining of back pain. He reports last night he slipped and fell on a patch of ice at approximately 3:00 AM. He rates pain 8 out of 10. He describes pain as an intermittent aching sensation. Pain is localized to the thoracic spine as well as the paraspinal muscles. He reports that heat is a relieving factor. Movement at times can be an aggravated factor. Prior to ER visit patient took 2 ibuprofen, which provided some pain relief. Upon physical examination tenderness to palpitation was noted to the paraspinal muscles and thoracic spine. Limited range of motion was noted with flexion secondary to pain. X-ray of the thoracic spine was ordered. There were no significant findings. There were no fractures noted. Ibuprofen 800 mg was ordered. Patient informed to rest, apply ice and heat to assist with treatment. Patient was instructed to follow-up with his PCP in 3-5 days. If symptoms worsen or does not improve patient is to return to the emergency room immediately. Critical care attestation.: If time is entered above; I have spent that time in minutes in the direct care of this critically ill patient, excluding procedure time. ED Disposition Clinical Impression: Muscle strain Contusion of mid back Qualifiers: Encounter type: initial encounter Laterality: left Qualified Code(s): S20.222A - Contusion of left back wall of thorax, initial encounter Disposition: DC-01 TO HOME OR SELFCARE Is pt being admited?: No Does the pt Need Aspirin: No Condition: Stable Instructions: Muscle Strain (ED), Contusion in Adults (ED) Additional Instructions: Patient instructed to follow up with PCP in 2-3 days. Patient instructed to rest, apply ice, and heat. Limit activity as tolerated. If symptoms worsen or do not improve patient is to return to the emergency room immediately. Prescriptions: Ibuprofen 800 mg PO TID PRN #30 tablet PRN Reason: Pain Referrals: OPHELIA HARMON MD [Staff Physician] - 3-5 Days Forms: Work/School Release Form(ED)
--- NOTE | 2017-05-06 01:13 | XRay Report ---
FINAL REPORT PROCEDURE: XR SPINE THORACIC 2V TECHNIQUE: Thoracic spine radiographs including AP, lateral, and Swimmer's views. CPT 42814 HISTORY: fall COMPARISON: No prior studies are available for comparison. FINDINGS: Alignment: Normal . Vertebral body height: Normal . Disk spaces: Normal . Fracture(s): None . Bone mineralization: Normal . IMPRESSION: Normal Examination.
== END 2017-05-06 01:32 | disposition home or self-care (01) ==
LOC: ED 14:35
DX: S29.012A Strain of muscle and tendon of back wall of thorax, initial encounter (principal); F17.200 Nicotine dependence, unspecified, uncomplicated; W00.0XXA Fall on same level due to ice and snow, initial encounter; Y93.89 Activity, other specified; Y92.89 Other specified places as the place of occurrence of the external cause; Y99.8 Other external cause status
CPT/HCPCS: 72072; 99283

== ENCOUNTER 2017-06-07 14:07 | Emergency (ER) | payer SELFPAY ==
--- NOTE | 2017-06-07 21:10 | Emergency Department Report ---
Upper Extremity - HPI Chief Complaint: Extremity Injury, Upper Stated Complaint: RIGHT HAND PAIN Time Seen by Provider: 06/07/17 20:51 Upper Extremity: Right Hand (right hand pain) Occurred When: >5 Days (1 week) Mechanism: Hit with Object Symptoms: Yes Pain with Movement (right hand), Yes Swelling (right hand), No Deformity, No Limited Range of Movement, No Numbness, No Weakness, No Bruising/ Ecchymosis, No Laceration or Abrasion Other History: Patient reports that Pallet fell on his rt hand 1 weeks ago.c/o pain and swelling to rt hand. pain 6/10 and sore. no numbeness or tingling. [id number] Tylenol taking without any results. ED Review of Systems ROS: Stated complaint: RIGHT HAND PAIN Other details as noted in HPI Comment: All other systems reviewed and negative Constitutional: no symptoms reported Eyes: denies: eye pain, vision change ENT: denies: ear pain, throat pain, congestion Respiratory: no symptoms reported Cardiovascular: denies: chest pain, palpitations, dyspnea on exertion, edema, syncope, paroxysmal nocturnal dyspnea Gastrointestinal: denies: abdominal pain, nausea, vomiting, diarrhea, constipation, hematemesis, melena, hematochezia Genitourinary: denies: dysuria, frequency, hematuria, discharge Musculoskeletal: joint swelling, arthralgia. denies: back pain, myalgia Skin: denies: rash Neurological: denies: weakness, numbness, paresthesias, confusion, abnormal gait , vertigo ED Past Medical Hx - Past Medical History Previous Medical History?: Yes Hx Diabetes: No Hx Deep Vein Thrombosis: No Hx Pulmonary Embolism: No Hx GERD: No Hx Liver Disease: No Hx Renal Disease: No Hx Sickle Cell Disease: No Hx Arthritis: No Hx Headaches / Migraines: No Hx Seizures: No Hx Kidney Stones: No Hx Psychiatric Treatment: No Hx Asthma: No Hx COPD: No Hx Tuberculosis: No Hx Dementia: No Hx HIV: No Additional medical history: acid reflux - Surgical History Past Surgical History?: No Hx Coronary Stent: No Hx Open Heart Surgery: No Hx Pacemaker: No Hx Internal Defibrillator: No Hx Cholecystectomy: No Hx Appendectomy: No Hx Breast Surgery: No - Family History Family history: no significant - Social History Smoking Status: Current Every Day Smoker Substance Use Type: None - Medications Home Medications: Home Medications Medication Instructions Recorded Confirmed Last Taken Type Clindamycin [Clindamycin CAP] 300 mg PO Q6H #40 capsule 02/04/13 Unknown Rx HYDROcodone/APAP 5-325 [Ruth 1 each PO Q6HR PRN #12 tablet 02/04/13 Unknown Rx 5/325 mg] Cyclobenzaprine [Flexeril 10 MG 10 mg PO QHS PRN #20 tablet 12/15/16 Unknown Rx TAB] Ibuprofen [Motrin 800 MG tab] 800 mg PO TID PRN #30 tablet 12/15/16 Unknown Rx Pseudoephedrine ER [Sudafed 12 Hr] 120 mg PO BID #30 tablet.er 12/15/16 Unknown Rx Sulfamethoxazole/Trimethoprim 1 each PO BID #10 tablet 02/02/17 Unknown Rx [Bactrim DS TAB] Fluticasone [Flonase] 1 spray NS QDAY #1 bottle 03/18/17 Unknown Rx Ibuprofen [Motrin] 600 mg PO Q8H PRN #30 tablet 03/18/17 Unknown Rx Terbinafine HCl [Lamisil At] 30 gm TP BID #2 tube 03/29/17 Unknown Rx Triamcinolone 0.1% [Kenalog 0.1% 1 applic TP TID #2 tube 03/29/17 Unknown Rx CREAM] Ibuprofen [Motrin] 600 mg PO Q8H PRN #30 tablet 04/12/17 Unknown Rx Ibuprofen 800 mg PO TID PRN #30 tablet 05/05/17 Unknown Rx traMADol [Ultram] 50 mg PO Q6HR PRN #8 tablet 06/07/17 Unknown Rx Upper Extremity Exam - Exam General: Vital signs noted. No distress. Alert and acting appropriately. This is a 41-year-old male well-nourished well-developed in no acute distress. Head and Torso: No HEENT Abnormality (normal exam), No Neck Tenderness (full range of motion, no C-spine tenderness and no tracheal deviation), No Chest/ Lungs Abnormality (lungs clear to auscultate bilaterally, no rhonchi wheezes or rales.), No Abdominal Tenderness (soft, nontender to palpate in all quadrants. Normal bowel sounds and no guarding or rebound), No Back Tenderness Shoulder Exam: Yes Normal Range of Motion in Shoulder, No Shoulder Tenderness ( no vertebral or paraspinal tenderness), No Clavicle Tenderness, No Shoulder Deformity, No AC Joint Tenderness Arm Exam: No Arm/Humerus Tenderness, No Arm Deformity Elbow: Yes Normal Range of Motion in Elbow, No Elbow Tenderness, No Elbow Deformity Forearm: No Forearm Tenderness, No Forearm Deformity, No Pain with Pronation, No Pain with Supination Wrist: Yes Normal ROM in Wrist, No Wrist Tenderness, No Wrist Deformity, No Snuffbox Tenderness, No Pain with Axial Thumb Compression Hand: Yes Hand Tenderness (tenderness to dorsal aspect of right hand), Yes Digit Tenderness (nontender to palpate. ), Yes Normal ROM in Digit(s) (full range of motion to bilateral hands with equal hand triage nurse that is strong), No Hand Deformity (mouth swelling to right hand), No Digit(s) Deformity, No Tendon Dysfunction CMS Exam: Yes Normal Distal Pulses, Yes Normal Capillary Refill, Yes Normal Distal Sensation, No Broken Skin ED Course Vital Signs 06/07/17 16:55 Temperature 97.8 F Pulse Rate 81 Respiratory 18 Rate Blood Pressure 100/60 O2 Sat by Pulse 98 Oximetry Vital Signs 06/07/17 06/07/17 06/07/17 16:55 21:17 21:58 Temperature 97.8 F 97.7 F Pulse Rate 81 80 Respiratory 18 18 18 Rate Blood Pressure 100/60 Blood Pressure 91/58 [Left] O2 Sat by Pulse 98 99 Oximetry - Reevaluation(s) Reevaluation #1: 06/07/17 22:22 She given Motrin 800 mg in the emergency room for right hand pain relief. See procedure note for details on [facility] - Orthopedic Splinting/Casting Injury #1 Side: right Upper Extremity Injury Location: hand Upper Extremity Immobilizer: volar spint Additional Comments: Prefabricated splint to right hand. Patient with good color, sensation, movement and temperature to fingers of right hand after splint placement ED Medical Decision Making - Radiology Data Radiology results: report reviewed X-ray of right hand reveals dorsal soft tissue swelling but no fracture or dislocation identified - Medical Decision Making ED course: She is status post right and injury 1 week ago complaining of some swelling and pain with movement. Physical findings for mild swelling and with no bony tenderness. She with full range of motion to right hand and fingers with no signs of tendon injury. He has bounding 2+ pulses to both hands. X- ray findings for dorsal soft tissue swelling without any bony abnormality. I discussed this with patient and he voiced understanding. Patient was given Motrin 800 mg in the emergency room and I discussed with him that he will need to follow-up with orthopedic doctor. Velcro splint placed a right hand and patient discharged home in stable condition with prescription for Ultram as he has acid reflux. Critical care attestation.: If time is entered above; I have spent that time in minutes in the direct care of this critically ill patient, excluding procedure time. ED Disposition Clinical Impression: Contusion of right hand, initial encounter, Arthralgia of right hand Injury of right hand Qualifiers: Encounter type: initial encounter Qualified Code(s): S69.91XA - Unspecified injury of right wrist, hand and finger(s), initial encounter Disposition: TO HOME OR SELFCARE Is pt being admited?: No Does the pt Need Aspirin: No Condition: Stable Instructions: Contusion in Adults (ED), Arthralgia (ED), RICE Therapy (ED), Splint Care (ED) Additional Instructions: Please follow up with orthopedic doctor See discharge instruction and splint care Rest, ice compress and elevate affected area Take Ultram as prescribed for pain. Please do not drive or operate heavy machinery while taking this medication as it can cause drowsiness Prescriptions: traMADol [Ultram] 50 mg PO Q6HR PRN #8 tablet PRN Reason: Pain Referrals: CALVIN WALKER MD [Staff Physician] - 2-3 Days [facility] [Outside] - 2-3 Days Forms: Accompanied Note, Work/School Release Form(ED)
[2017-06-07] MEDS ORDERED: MOTRIN PO ONE (21:11)
[2017-06-07 21:59] VITALS: BP 91/58
--- NOTE | 2017-06-07 22:22 | XRay Report ---
FINAL REPORT PROCEDURE: XR HAND 3+V RT TECHNIQUE: Right hand, three views HISTORY: heavy object dropped on rt hand. pain and swelling COMPARISON: No prior studies are available for comparison. FINDINGS: There is dorsal soft tissue swelling. No fracture or joint dislocation is seen. No radiopaque foreign body is seen. IMPRESSION: No fracture is identified
== END 2017-06-07 22:55 | disposition home or self-care (01) ==
LOC: ED 14:07
DX: S60.221A Contusion of right hand, initial encounter (principal); F17.200 Nicotine dependence, unspecified, uncomplicated; X58.XXXA Exposure to other specified factors, initial encounter; Y93.89 Activity, other specified; Y92.89 Other specified places as the place of occurrence of the external cause; Y99.8 Other external cause status
CPT/HCPCS: 99283

== ENCOUNTER 2017-06-15 14:01 | Emergency (ER) | payer SELFPAY ==
[2017-06-15 14:07] VITALS: BP 105/67
[2017-06-15] MEDS ORDERED: MOTRIN PO ONE (15:03)
[2017-06-15] MEDS ORDERED: TESSALON PERLES PO ONE (15:03)
--- NOTE | 2017-06-15 15:07 | Emergency Department Report ---
- General Chief Complaint: Upper Respiratory Infection Stated Complaint: FLU-LIKE SX Time Seen by Provider: 06/15/17 15:01 Source: patient Mode of arrival: Ambulatory Limitations: No Limitations - History of Present Illness Initial Comments: This is a 41-year-old male nontoxic, well nourished in appearance, no acute signs of distress presents to the ED with c/o of productive cough, fever, chills , body aches, rhinorrhea, nasal congestion x1 day. Patient describes productive cough as yellow mucus production. Patient agrees to sick contact with girlfriend which has the flu. Patient denies any recent travels, long car , recent hospital stays. Patient denies any calf pain or calf tenderness. Patient denies any chest pain, short of breath, fever, chills, nausea, vomiting , hemoptysis, numbness, tingling, headache or stiff neck. Patient denies any allergies or significant PMH. MD Complaint: cough, rhinorrhea, nasal congestion, other (body aches) -: days(s) (1) Severity: mild Severity scale (0 -10): 8 Quality: aching Consistency: constant Improves With: nothing Worsens With: nothing Context: sick contacts Associated Symptoms: rhinorrhea, nasal congestion, cough. denies: fever, chills , myalgias, diaphoresis, headache, sore throat, stiff neck, chest pain, shortness of breath, abdominal pain, nausea, vomiting, diarrhea, dysuria, rash, confusion, right sweats, weight loss, epistaxis, hoarseness, ear pain Treatments Prior to Arrival: none - Related Data Previous Rx's Medication Instructions Recorded Last Taken Type Clindamycin [Clindamycin CAP] 300 mg PO Q6H #40 capsule 02/04/13 Unknown Rx HYDROcodone/APAP 5-325 [[place] 1 each PO Q6HR PRN #12 tablet 02/04/13 Unknown Rx 5/325 mg] Cyclobenzaprine [Flexeril 10 MG 10 mg PO QHS PRN #20 tablet 12/15/16 Unknown Rx TAB] Ibuprofen [Motrin 800 MG tab] 800 mg PO TID PRN #30 tablet 12/15/16 Unknown Rx Pseudoephedrine ER [Sudafed 12 Hr] 120 mg PO BID #30 tablet.er 12/15/16 Unknown Rx Sulfamethoxazole/Trimethoprim 1 each PO BID #10 tablet 02/02/17 Unknown Rx [Bactrim DS TAB] Fluticasone [Flonase] 1 spray NS QDAY #1 bottle 03/18/17 Unknown Rx Ibuprofen [Motrin] 600 mg PO Q8H PRN #30 tablet 03/18/17 Unknown Rx Terbinafine HCl [Lamisil At] 30 gm TP BID #2 tube 03/29/17 Unknown Rx Triamcinolone 0.1% [Kenalog 0.1% 1 applic TP TID #2 tube 03/29/17 Unknown Rx CREAM] Ibuprofen [Motrin] 600 mg PO Q8H PRN #30 tablet 04/12/17 Unknown Rx Ibuprofen 800 mg PO TID PRN #30 tablet 05/05/17 Unknown Rx traMADol [Ultram] 50 mg PO Q6HR PRN #8 tablet 06/07/17 Unknown Rx Azithromycin [Zithromax Z-KENNETH] 250 mg PO DAILY #6 tablet 06/15/17 Unknown Rx Benzonatate [Tessalon Perle] 100 mg PO Q6H PRN #20 capsule 06/15/17 Unknown Rx Ibuprofen [Motrin] 600 mg PO Q8H PRN #30 tablet 06/15/17 Unknown Rx Oseltamivir [Tamiflu] 75 mg PO BID #14 cap 06/15/17 Unknown Rx Allergies Allergy/AdvReac Type Severity Reaction Status Date / Time No Known Allergies Allergy Verified 04/12/17 13:53 ED Review of Systems ROS: Stated complaint: FLU-LIKE SX Other details as noted in HPI Constitutional: denies: chills, fever Eyes: denies: eye pain, eye discharge, vision change ENT: denies: ear pain, throat pain Respiratory: cough. denies: shortness of breath, wheezing Cardiovascular: denies: chest pain, palpitations Endocrine: no symptoms reported Gastrointestinal: denies: abdominal pain, nausea, diarrhea Genitourinary: denies: urgency, dysuria Musculoskeletal: denies: back pain, joint swelling, arthralgia Skin: denies: rash, lesions Neurological: denies: headache, weakness, paresthesias Psychiatric: denies: anxiety, depression Hematological/Lymphatic: denies: easy bleeding, easy bruising ED Past Medical Hx - Past Medical History Hx Diabetes: No Hx Deep Vein Thrombosis: No Hx Pulmonary Embolism: No Hx GERD: No Hx Liver Disease: No Hx Renal Disease: No Hx Sickle Cell Disease: No Hx Arthritis: No Hx Headaches / Migraines: No Hx Seizures: No Hx Kidney Stones: No Hx Psychiatric Treatment: No Hx Asthma: No Hx COPD: No Hx Tuberculosis: No Hx Dementia: No Hx HIV: No Additional medical history: acid reflux - Surgical History Hx Coronary Stent: No Hx Open Heart Surgery: No Hx Pacemaker: No Hx Internal Defibrillator: No Hx Cholecystectomy: No Hx Appendectomy: No Hx Breast Surgery: No - Social History Smoking Status: Current Every Day Smoker Substance Use Type: None - Medications Home Medications: Home Medications Medication Instructions Recorded Confirmed Last Taken Type Clindamycin [Clindamycin CAP] 300 mg PO Q6H #40 capsule 02/04/13 Unknown Rx HYDROcodone/APAP 5-325 [[place] 1 each PO Q6HR PRN #12 tablet 02/04/13 Unknown Rx 5/325 mg] Cyclobenzaprine [Flexeril 10 MG 10 mg PO QHS PRN #20 tablet 12/15/16 Unknown Rx TAB] Ibuprofen [Motrin 800 MG tab] 800 mg PO TID PRN #30 tablet 12/15/16 Unknown Rx Pseudoephedrine ER [Sudafed 12 Hr] 120 mg PO BID #30 tablet.er 12/15/16 Unknown Rx Sulfamethoxazole/Trimethoprim 1 each PO BID #10 tablet 02/02/17 Unknown Rx [Bactrim DS TAB] Fluticasone [Flonase] 1 spray NS QDAY #1 bottle 03/18/17 Unknown Rx Ibuprofen [Motrin] 600 mg PO Q8H PRN #30 tablet 03/18/17 Unknown Rx Terbinafine HCl [Lamisil At] 30 gm TP BID #2 tube 03/29/17 Unknown Rx Triamcinolone 0.1% [Kenalog 0.1% 1 applic TP TID #2 tube 03/29/17 Unknown Rx CREAM] Ibuprofen [Motrin] 600 mg PO Q8H PRN #30 tablet 04/12/17 Unknown Rx Ibuprofen 800 mg PO TID PRN #30 tablet 05/05/17 Unknown Rx traMADol [Ultram] 50 mg PO Q6HR PRN #8 tablet 06/07/17 Unknown Rx Azithromycin [Zithromax Z-KENNETH] 250 mg PO DAILY #6 tablet 06/15/17 Unknown Rx Benzonatate [Tessalon Perle] 100 mg PO Q6H PRN #20 capsule 06/15/17 Unknown Rx Ibuprofen [Motrin] 600 mg PO Q8H PRN #30 tablet 06/15/17 Unknown Rx Oseltamivir [Tamiflu] 75 mg PO BID #14 cap 06/15/17 Unknown Rx ED Physical Exam - General Limitations: No Limitations General appearance: alert, in no apparent distress - Head Head exam: Present: atraumatic, normocephalic - Eye Eye exam: Present: normal appearance, PERRL, EOMI Pupils: Present: normal accommodation - ENT ENT exam: Present: normal exam, normal orophraynx, mucous membranes moist, TM's normal bilaterally, normal external ear exam - Neck Neck exam: Present: normal inspection, full ROM. Absent: tenderness, meningismus, lymphadenopathy, thyromegaly - Respiratory Respiratory exam: Present: normal lung sounds bilaterally. Absent: respiratory distress, wheezes, rales, rhonchi, stridor, chest wall tenderness, accessory muscle use, decreased breath sounds, prolonged expiratory - Cardiovascular Cardiovascular Exam: Present: regular rate, normal rhythm, normal heart sounds. Absent: bradycardia, tachycardia, irregular rhythm, systolic murmur, diastolic murmur, rubs, gallop - GI/Abdominal GI/Abdominal exam: Present: soft, normal bowel sounds. Absent: distended, tenderness, guarding, rebound, rigid, diminished bowel sounds - Rectal Rectal exam: Present: deferred - Extremities Exam Extremities exam: Present: normal inspection, full ROM, normal capillary refill. Absent: tenderness, pedal edema, joint swelling, calf tenderness - Back Exam Back exam: Present: normal inspection, full ROM. Absent: tenderness, CVA tenderness (R), CVA tenderness (L), muscle spasm, paraspinal tenderness, vertebral tenderness, rash noted - Neurological Exam Neurological exam: Present: alert, oriented X3, CN II-XII intact, normal gait, reflexes normal - Psychiatric Psychiatric exam: Present: normal affect, normal mood - Skin Skin exam: Present: warm, dry, intact, normal color. Absent: rash ED Course Vital Signs 06/15/17 14:05 Temperature 97.9 F Pulse Rate 86 Respiratory 18 Rate Blood Pressure 105/67 O2 Sat by Pulse 98 Oximetry - Reevaluation(s) Reevaluation #1: 06/15/17 15:09 Patient is speaking in full sentences with no signs of distress noted. ED Medical Decision Making - Medical Decision Making This is a 41-year-old male that presents with upper respiratory infection and influenza. Patient is stable and was examined by me. Chest x-ray has been obtained and dictated by radiologist with normal exam. Patient is notified of x -ray results with no questions noted. Due to patient having symptoms of upper respiratory infection and symptoms of influenza and sick contact with positive flu and worsening I will treat patient empirically Tamiflu with zpak. Patient is within the >72 hour window for tamiflu. Patient was instructed to increase hydration, rest and take Motrin for fever episodes. Patient received motrin and tesslone perrls in the ED. Vitals stable. Patient is nonfebrile and normal heart rate. Patient was orally hydrated and patient tolerated well known nausea or vomiting. Patient was instructed Follow-up with a primary care doctor in 3- 5 days or if symptoms worsen and continue return to emergency room as soon as possible. At time time of discharge, the patient does not seem toxic or ill in appearance. No acute signs of distress noted. Patient agrees to discharge treatment plan of care. No further questions noted by the patient. Critical care attestation.: If time is entered above; I have spent that time in minutes in the direct care of this critically ill patient, excluding procedure time. ED Disposition Clinical Impression: Influenza Upper respiratory infection Qualifiers: URI type: unspecified URI Qualified Code(s): J06.9 - Acute upper respiratory infection, unspecified Disposition: DC-01 TO HOME OR SELFCARE Is pt being admited?: No Does the pt Need Aspirin: No Condition: Stable Instructions: Upper Respiratory Infection (ED), Oseltamivir (By mouth), Azithromycin (By mouth), Influenza (ED) Additional Instructions: Follow-up with a primary care doctor in 3-5 days or if symptoms worsen and continue return to emergency room as soon as possible. Increased rest, hydration, and take Motrin as prescribed during Fever episode. Prescriptions: Azithromycin [Zithromax Z-KENNETH] 250 mg PO DAILY #6 tablet Benzonatate [Tessalon Perle] 100 mg PO Q6H PRN #20 capsule PRN Reason: Cough Ibuprofen [Motrin] 600 mg PO Q8H PRN #30 tablet PRN Reason: Pain Oseltamivir [Tamiflu] 75 mg PO BID #14 cap Referrals: PRIMARY CARE, [Primary Care Provider] - 3-5 Days VIRGINIE OLIVO MD [Staff Physician] - 3-5 Days [facility] [Outside] - 3-5 Days [facility] [Outside] - 3-5 Days Forms: Work/School Release Form(ED)
--- NOTE | 2017-06-15 16:40 | XRay Report ---
FINAL REPORT EXAM: XR CHEST ROUTINE 2V HISTORY: cough TECHNIQUE: PA and lateral views of the chest PRIORS: None. FINDINGS: Lines, tubes, and devices: N/A Lungs and pleura: Trachea is normal in position. Lungs are clear of infiltrate, pleural effusion, vascular congestion, or pneumothorax. Cardiomediastinal silhouette: Cardiac and mediastinal silhouettes are unremarkable. Other: Bony structures are intact. IMPRESSION: No acute cardiopulmonary process seen.
== END 2017-06-15 16:54 | disposition home or self-care (01) ==
LOC: ED 14:01
DX: J11.1 Influenza due to unidentified influenza virus with other respiratory manifestations (principal); F17.200 Nicotine dependence, unspecified, uncomplicated
CPT/HCPCS: 71046; 99283

== ENCOUNTER 2017-06-29 15:44 | Emergency (ER) | payer SELFPAY ==
[2017-06-29 17:03] VITALS: BP 96/62
[2017-06-29] MEDS ORDERED: TYLENOL ONE (19:33)
[2017-06-29] MEDS ORDERED: MOTRIN PO ONE ×2 (19:34→19:37)
[2017-06-29] MEDS ORDERED: TYLENOL PO ONE (19:37)
--- NOTE | 2017-06-29 20:02 | Emergency Department Report ---
ED General Adult HPI - General Chief complaint: Upper Respiratory Infection Stated complaint: HEADACHE Time Seen by Provider: 06/29/17 19:57 Source: patient Mode of arrival: Ambulatory Limitations: No Limitations - History of Present Illness Initial comments: Pt is a 41-year-old male no significant past medical history who presents with bilateral leg pain that's been going on for last couple days states has 4 out of 10 since the pain has been going on since he's been wearing wet boots. Patient's pain is moderate walking makes it worse. Patient states she's had similar pain before. Patient denies having any headache or any fever or any neck pain or any upper respiratory viral symptoms. Severity scale (0 -10): 8 - Related Data Previous Rx's Medication Instructions Recorded Last Taken Type Clindamycin [Clindamycin CAP] 300 mg PO Q6H #40 capsule 02/04/13 Unknown Rx HYDROcodone/APAP 5-325 [[place] 1 each PO Q6HR PRN #12 tablet 02/04/13 Unknown Rx 5/325 mg] Cyclobenzaprine [Flexeril 10 MG 10 mg PO QHS PRN #20 tablet 12/15/16 Unknown Rx TAB] Ibuprofen [Motrin 800 MG tab] 800 mg PO TID PRN #30 tablet 12/15/16 Unknown Rx Pseudoephedrine ER [Sudafed 12 Hr] 120 mg PO BID #30 tablet.er 12/15/16 Unknown Rx Sulfamethoxazole/Trimethoprim 1 each PO BID #10 tablet 02/02/17 Unknown Rx [Bactrim DS TAB] Fluticasone [Flonase] 1 spray NS QDAY #1 bottle 03/18/17 Unknown Rx Ibuprofen [Motrin] 600 mg PO Q8H PRN #30 tablet 03/18/17 Unknown Rx Terbinafine HCl [Lamisil At] 30 gm TP BID #2 tube 03/29/17 Unknown Rx Triamcinolone 0.1% [Kenalog 0.1% 1 applic TP TID #2 tube 03/29/17 Unknown Rx CREAM] Ibuprofen [Motrin] 600 mg PO Q8H PRN #30 tablet 04/12/17 Unknown Rx Ibuprofen 800 mg PO TID PRN #30 tablet 05/05/17 Unknown Rx traMADol [Ultram] 50 mg PO Q6HR PRN #8 tablet 06/07/17 Unknown Rx Azithromycin [Zithromax Z-KENNETH] 250 mg PO DAILY #6 tablet 06/15/17 Unknown Rx Benzonatate [Tessalon Perle] 100 mg PO Q6H PRN #20 capsule 06/15/17 Unknown Rx Ibuprofen [Motrin] 600 mg PO Q8H PRN #30 tablet 06/15/17 Unknown Rx Oseltamivir [Tamiflu] 75 mg PO BID #14 cap 06/15/17 Unknown Rx Acetaminophen 500 mg PO Q6H #30 capsule 06/29/17 Unknown Rx Diclofenac Sodium [Voltaren] 100 gm TP Q6H #1 gel..gram. 06/29/17 Unknown Rx Allergies Allergy/AdvReac Type Severity Reaction Status Date / Time No Known Allergies Allergy Verified 04/12/17 13:53 ED Review of Systems ROS: Stated complaint: HEADACHE Other details as noted in HPI Constitutional: denies: chills, fever Eyes: denies: eye pain, eye discharge, vision change ENT: denies: ear pain, throat pain Respiratory: denies: cough, shortness of breath, wheezing Cardiovascular: denies: chest pain, palpitations Endocrine: no symptoms reported Gastrointestinal: denies: abdominal pain, nausea, diarrhea Genitourinary: denies: urgency, dysuria Musculoskeletal: as per HPI. denies: back pain, joint swelling, arthralgia Skin: denies: rash, lesions Neurological: denies: headache, weakness, paresthesias Psychiatric: denies: anxiety, depression Hematological/Lymphatic: denies: easy bleeding, easy bruising ED Past Medical Hx - Past Medical History Hx Diabetes: No Hx Deep Vein Thrombosis: No Hx Pulmonary Embolism: No Hx GERD: No Hx Liver Disease: No Hx Renal Disease: No Hx Sickle Cell Disease: No Hx Arthritis: No Hx Headaches / Migraines: No Hx Seizures: No Hx Kidney Stones: No Hx Psychiatric Treatment: No Hx Asthma: No Hx COPD: No Hx Tuberculosis: No Hx Dementia: No Hx HIV: No Additional medical history: acid reflux - Surgical History Hx Coronary Stent: No Hx Open Heart Surgery: No Hx Pacemaker: No Hx Internal Defibrillator: No Hx Cholecystectomy: No Hx Appendectomy: No Hx Breast Surgery: No - Social History Smoking Status: Current Every Day Smoker Substance Use Type: None - Medications Home Medications: Home Medications Medication Instructions Recorded Confirmed Last Taken Type Clindamycin [Clindamycin CAP] 300 mg PO Q6H #40 capsule 02/04/13 Unknown Rx HYDROcodone/APAP 5-325 [[place] 1 each PO Q6HR PRN #12 tablet 02/04/13 Unknown Rx 5/325 mg] Cyclobenzaprine [Flexeril 10 MG 10 mg PO QHS PRN #20 tablet 12/15/16 Unknown Rx TAB] Ibuprofen [Motrin 800 MG tab] 800 mg PO TID PRN #30 tablet 12/15/16 Unknown Rx Pseudoephedrine ER [Sudafed 12 Hr] 120 mg PO BID #30 tablet.er 12/15/16 Unknown Rx Sulfamethoxazole/Trimethoprim 1 each PO BID #10 tablet 02/02/17 Unknown Rx [Bactrim DS TAB] Fluticasone [Flonase] 1 spray NS QDAY #1 bottle 03/18/17 Unknown Rx Ibuprofen [Motrin] 600 mg PO Q8H PRN #30 tablet 03/18/17 Unknown Rx Terbinafine HCl [Lamisil At] 30 gm TP BID #2 tube 03/29/17 Unknown Rx Triamcinolone 0.1% [Kenalog 0.1% 1 applic TP TID #2 tube 03/29/17 Unknown Rx CREAM] Ibuprofen [Motrin] 600 mg PO Q8H PRN #30 tablet 04/12/17 Unknown Rx Ibuprofen 800 mg PO TID PRN #30 tablet 05/05/17 Unknown Rx traMADol [Ultram] 50 mg PO Q6HR PRN #8 tablet 06/07/17 Unknown Rx Azithromycin [Zithromax Z-KENNETH] 250 mg PO DAILY #6 tablet 06/15/17 Unknown Rx Benzonatate [Tessalon Perle] 100 mg PO Q6H PRN #20 capsule 06/15/17 Unknown Rx Ibuprofen [Motrin] 600 mg PO Q8H PRN #30 tablet 06/15/17 Unknown Rx Oseltamivir [Tamiflu] 75 mg PO BID #14 cap 06/15/17 Unknown Rx Acetaminophen 500 mg PO Q6H #30 capsule 06/29/17 Unknown Rx Diclofenac Sodium [Voltaren] 100 gm TP Q6H #1 gel..gram. 06/29/17 Unknown Rx ED Physical Exam - General Limitations: No Limitations General appearance: alert, in no apparent distress - Head Head exam: Present: atraumatic, normocephalic - Eye Eye exam: Present: normal appearance - ENT ENT exam: Present: mucous membranes moist - Neck Neck exam: Present: normal inspection - Respiratory Respiratory exam: Present: normal lung sounds bilaterally. Absent: respiratory distress - Cardiovascular Cardiovascular Exam: Present: regular rate, normal rhythm. Absent: systolic murmur, diastolic murmur, rubs, gallop - GI/Abdominal GI/Abdominal exam: Present: soft, normal bowel sounds - Rectal Rectal exam: Present: deferred - Extremities Exam Extremities exam: Present: normal inspection - Back Exam Back exam: Present: normal inspection - Neurological Exam Neurological exam: Present: alert, oriented X3 - Psychiatric Psychiatric exam: Present: normal affect, normal mood - Skin Skin exam: Present: warm, dry, intact, normal color. Absent: rash ED Course Vital Signs 06/29/17 17:01 Temperature 98.7 F Pulse Rate 78 Respiratory 16 Rate Blood Pressure 96/62 O2 Sat by Pulse 96 Oximetry ED Medical Decision Making - Medical Decision Making Cdx: Myalgia 2/2 overuse ddx: Plantar fascitits, osteoarthritis I will give patient oral pain medications and I will send patient home with doctor. Discussed plan for discharge with patient. Additional verbal discharge instructions were given and patient agrees with plan. Critical care attestation.: If time is entered above; I have spent that time in minutes in the direct care of this critically ill patient, excluding procedure time. ED Disposition Clinical Impression: Foot pain, bilateral, Myalgia Disposition: DC-01 TO HOME OR SELFCARE Is pt being admited?: No Does the pt Need Aspirin: No Condition: Stable Instructions: Arthralgia (ED), Capsaicin (On the skin) Prescriptions: Acetaminophen 500 mg PO Q6H #30 capsule Diclofenac Sodium [Voltaren] 100 gm TP Q6H #1 gel..gram. Referrals: KAEL ORDAZ MD [Referring] - 3-5 Days Forms: Work/School Release Form(ED)
== END 2017-06-29 20:04 | disposition home or self-care (01) ==
LOC: ED 15:44
DX: M79.1 Myalgia (principal); M79.671 Pain in right foot; M79.672 Pain in left foot; F17.200 Nicotine dependence, unspecified, uncomplicated
CPT/HCPCS: 99282

== ENCOUNTER 2017-07-07 12:07 | Emergency (ER) | payer SELFPAY ==
[2017-07-07 12:14] VITALS: BP 104/71
--- NOTE | 2017-07-07 13:16 | Emergency Department Report ---
Chief Complaint: Dizziness Stated Complaint: DIZZY Time Seen by Provider: 07/07/17 13:06 - HPI History of Present Illness: Patient states that he works 7 days a week and he was tired off then felt somewhat disoriented after that his last 3 hours asleep. Patient's girlfriend' s here for an urgent condition and so he thought he just check in to get checked on. Patient states he has no chest pain shortness of breath fevers chills nausea vomiting headache. Patient's only complaint is lack of sleep and fatigue. - ROS Review of Systems: All systems reviewed are negative except for those items seen in the HPI - Exam Vital Signs: Vital Signs 07/07/17 12:09 Temperature 97.8 F Pulse Rate 75 Respiratory 18 Rate Blood Pressure 104/71 O2 Sat by Pulse 100 Oximetry Physical Exam: Heart lung exams are within normal limits patient is alert and oriented 3 and speaking in full sentences MSE screening note: Focused history and physical exam performed. Due to findings the following was ordered: ED Medical Decision Making - Medical Decision Making Patient does not have a emergent condition at this time and will be discharged home as a nonmedical emergency patient. ED Disposition for MSE Clinical Impression: Sleep deprivation Disposition: DC-01 TO HOME OR SELFCARE Is pt being admited?: No Does the pt Need Aspirin: No Condition: Stable Referrals: [facility] [Outside] - 3-5 Days Forms: Work/School Release Form
== END 2017-07-07 13:20 | disposition home or self-care (01) ==
LOC: ED 12:07
DX: Z72.820 Sleep deprivation (principal)
CPT/HCPCS: 99282

== ENCOUNTER 2017-07-14 12:17 | Emergency (ER) | payer OTHER ==
[2017-07-14 13:35] VITALS: BP 108/71
[2017-07-14] MEDS ORDERED: MOTRIN PO ONE (15:53)
[2017-07-14] MEDS ORDERED: BENADRYL PO ONE (15:53)
[2017-07-14] MEDS ORDERED: MUCINEX ER PO ONE (15:53)
--- NOTE | 2017-07-14 16:03 | Emergency Department Report ---
HPI - General Chief Complaint: Upper Respiratory Infection Time Seen by Provider: 07/14/17 15:43 - HPI HPI: The patient is a 41-year-old male who presents for evaluation of lightheadedness , sinus congestion, and runny nose. The patient reports his symptoms have been present for the past one day, and that his lightheadedness has been constant and mild in severity, exacerbated with position changes or exertion, and improved with lying down and rest. He also admits to mild achy left ear pain for the past one day. The patient denies fever, chest pain, syncope, dyspnea, neck stiffness, dysphagia, stridor, drooling, difficulty tolerating secretions, dysphonia, hoarseness of voice, abdominal pain. ED Past Medical Hx - Past Medical History Hx Diabetes: No Hx Deep Vein Thrombosis: No Hx Pulmonary Embolism: No Hx GERD: No Hx Liver Disease: No Hx Renal Disease: No Hx Sickle Cell Disease: No Hx Arthritis: No Hx Headaches / Migraines: No Hx Seizures: No Hx Kidney Stones: No Hx Psychiatric Treatment: No Hx Asthma: No Hx COPD: No Hx Tuberculosis: No Hx Dementia: No Hx HIV: No Additional medical history: acid reflux - Surgical History Hx Coronary Stent: No Hx Open Heart Surgery: No Hx Pacemaker: No Hx Internal Defibrillator: No Hx Cholecystectomy: No Hx Appendectomy: No Hx Breast Surgery: No Additional Surgical History: I&d - Social History Smoking Status: Current Every Day Smoker Substance Use Type: None - Medications Home Medications: Home Medications Medication Instructions Recorded Confirmed Last Taken Type Clindamycin [Clindamycin CAP] 300 mg PO Q6H #40 capsule 02/04/13 Unknown Rx HYDROcodone/APAP 5-325 [[place] 1 each PO Q6HR PRN #12 tablet 02/04/13 Unknown Rx 5/325 mg] Cyclobenzaprine [Flexeril 10 MG 10 mg PO QHS PRN #20 tablet 12/15/16 Unknown Rx TAB] Ibuprofen [Motrin 800 MG tab] 800 mg PO TID PRN #30 tablet 12/15/16 Unknown Rx Pseudoephedrine ER [Sudafed 12 Hr] 120 mg PO BID #30 tablet.er 12/15/16 Unknown Rx Sulfamethoxazole/Trimethoprim 1 each PO BID #10 tablet 02/02/17 Unknown Rx [Bactrim DS TAB] Fluticasone [Flonase] 1 spray NS QDAY #1 bottle 11/16/17 Unknown Rx Ibuprofen [Motrin] 600 mg PO Q8H PRN #30 tablet 03/18/17 Unknown Rx Terbinafine HCl [Lamisil At] 30 gm TP BID #2 tube 03/29/17 Unknown Rx Triamcinolone 0.1% [Kenalog 0.1% 1 applic TP TID #2 tube 03/29/17 Unknown Rx CREAM] Ibuprofen [Motrin] 600 mg PO Q8H PRN #30 tablet 04/12/17 Unknown Rx Ibuprofen 800 mg PO TID PRN #30 tablet 05/05/17 Unknown Rx traMADol [Ultram] 50 mg PO Q6HR PRN #8 tablet 06/07/17 Unknown Rx Azithromycin [Zithromax Z-KENNETH] 250 mg PO DAILY #6 tablet 06/15/17 Unknown Rx Benzonatate [Tessalon Perle] 100 mg PO Q6H PRN #20 capsule 06/15/17 Unknown Rx Ibuprofen [Motrin] 600 mg PO Q8H PRN #30 tablet 06/15/17 Unknown Rx Oseltamivir [Tamiflu] 75 mg PO BID #14 cap 06/15/17 Unknown Rx Acetaminophen 500 mg PO Q6H #30 capsule 06/29/17 Unknown Rx Diclofenac Sodium [Voltaren] 100 gm TP Q6H #1 gel..gram. 06/29/17 Unknown Rx Ibuprofen [Motrin] 600 mg PO Q8H PRN #30 tablet 07/14/17 Unknown Rx Loratadine [Claritin] 10 mg PO DAILY #20 tablet 07/14/17 Unknown Rx guaiFENesin [Mucinex] 600 mg PO BID PRN #20 tab.er.12h 07/14/17 Unknown Rx ED Review of Systems ROS: Stated complaint: NOSE CONGESTED/COLD Other details as noted in HPI Constitutional: denies: fever ENT: denies: throat or neck pain; reports sinus congestion and runny nose Respiratory: denies: cough, shortness of breath Cardiovascular: denies: chest pain Endocrine: denies unexplained weight loss or gain Gastrointestinal: denies: abdominal pain, nausea Genitourinary: denies: dysuria Musculoskeletal: denies: leg swelling Skin: denies: rash Neurological: denies: headache Hematological/Lymphatic: denies: easy bleeding or easy bruising Psych: denies sadness or hopelessness Physical Exam - Physical Exam Vital Signs: Vital Signs 07/14/17 13:32 Temperature 98.2 F Pulse Rate 68 Respiratory 18 Rate Blood Pressure 108/71 O2 Sat by Pulse 99 Oximetry Physical Exam: General: well-nourished, well-developed, no acute distress Head: Normocephalic, atraumatic Eyes: normal sclera ENT: Mucous membranes are pale and dry, bilateral nasal congestion present, normal tympanic membranes bilaterally, no mastoid redness, fluctuance, tenderness or swelling bilaterally Neck: No neck stiffness, no cervical adenopathy Respiratory: Breath sounds equal bilaterally, no wheezing, rales, or rhonchi Cardio: S1 and S2 present, no murmurs, rubs, gallops, capillary refill is delayed Abdomen: Normoactive bowel sounds, soft abdomen, no rigidity, no guarding or rebound tenderness Chest WALL/Back: No tenderness to palpation of the chest wall, no CVA tenderness with percussion Musc: No pitting edema Skin: No rash Neuro: no facial drooping, normal speech Psych: Normal affect ED Course Vital Signs 07/14/17 13:32 Temperature 98.2 F Pulse Rate 68 Respiratory 18 Rate Blood Pressure 108/71 O2 Sat by Pulse 99 Oximetry ED Medical Decision Making - Medical Decision Making The patient was seen and examined by myself. The patient is placed on a cardiac cath rn and continuous pulse ox. On initial evaluation, the patient was found to be in no distress. Evaluation orders were placed. The patient is given Mucinex for congestion and Motrin for his pain. The patient was reevaluated and reported that their symptoms were markedly improved. On reexamination the patient is found to have normal respiratory rate and O2 sat on pulse oximetry, with no costal retractions or diminishment of breath sounds on auscultation. The patient is stable for discharge with outpatient follow- up. The patient is given follow-up and return instructions. The patient expressed understanding and agreed with the plan. The patient is discharged in stable condition. Critical care attestation.: If time is entered above; I have spent that time in minutes in the direct care of this critically ill patient, excluding procedure time. ED Disposition Clinical Impression: Nasal congestion, Orthostatic dizziness, Earache on left Rhinitis, allergic Qualifiers: Allergic rhinitis trigger: pollen Allergic rhinitis seasonality: seasonal Qualified Code(s): J30.1 - Allergic rhinitis due to pollen Disposition: DC-01 TO HOME OR SELFCARE Is pt being admited?: No Does the pt Need Aspirin: No Condition: Stable Instructions: Lightheadedness (ED), Allergic Rhinitis (ED), Cold Symptoms (ED) Referrals: PRIMARY CARE, [Primary Care Provider] - 3-5 Days Time of Disposition: 16:36
== END 2017-07-14 16:48 | disposition home or self-care (01) ==
LOC: ED 12:17
DX: H92.02 Otalgia, left ear (principal); J30.1 Allergic rhinitis due to pollen; R42 Dizziness and giddiness; F17.200 Nicotine dependence, unspecified, uncomplicated; K21.9 Gastro-esophageal reflux disease without esophagitis
CPT/HCPCS: 99282

== ENCOUNTER 2017-09-10 12:01 | Emergency (ER) | payer SELFPAY ==
--- NOTE | 2017-09-10 19:50 | Emergency Department Report ---
HPI - General Chief Complaint: Upper Respiratory Infection Time Seen by Provider: 09/10/17 19:27 - HPI HPI: This is a 41-year-old male with no medical problem history and takes no medications who presents to ED complaining of chills and fatigue for the past 2 days. Patient states he's been working really hard at work. He just feels tired. 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 Patient states he's been tired for the past couple days to see his company but rests. He denies fever/cough/congestion/headache/ear pain/blurry vision/chest pain/shortness of breath or any other problems. ED Past Medical Hx - Past Medical History Hx Diabetes: No Hx Deep Vein Thrombosis: No Hx Pulmonary Embolism: No Hx GERD: No Hx Liver Disease: No Hx Renal Disease: No Hx Sickle Cell Disease: No Hx Arthritis: No Hx Headaches / Migraines: No Hx Seizures: No Hx Kidney Stones: No Hx Psychiatric Treatment: No Hx Asthma: No Hx COPD: No Hx Tuberculosis: No Hx Dementia: No Hx HIV: No Additional medical history: acid reflux - Surgical History Hx Coronary Stent: No Hx Open Heart Surgery: No Hx Pacemaker: No Hx Internal Defibrillator: No Hx Cholecystectomy: No Hx Appendectomy: No Hx Breast Surgery: No Additional Surgical History: I&d - Social History Smoking Status: Current Every Day Smoker Substance Use Type: None - Medications Home Medications: Home Medications Medication Instructions Recorded Confirmed Last Taken Type Clindamycin [Clindamycin CAP] 300 mg PO Q6H #40 capsule 02/04/13 Unknown Rx HYDROcodone/APAP 5-325 [[place] 1 each PO Q6HR PRN #12 tablet 02/04/13 Unknown Rx 5/325 mg] Cyclobenzaprine [Flexeril 10 MG 10 mg PO QHS PRN #20 tablet 12/15/16 Unknown Rx TAB] Ibuprofen [Motrin 800 MG tab] 800 mg PO TID PRN #30 tablet 12/15/16 Unknown Rx Pseudoephedrine ER [Sudafed 12 Hr] 120 mg PO BID #30 tablet.er 12/15/16 Unknown Rx Sulfamethoxazole/Trimethoprim 1 each PO BID #10 tablet 02/02/17 Unknown Rx [Bactrim DS TAB] Fluticasone [Flonase] 1 spray NS QDAY #1 bottle 11/16/17 Unknown Rx Ibuprofen [Motrin] 600 mg PO Q8H PRN #30 tablet 03/18/17 Unknown Rx Terbinafine HCl [Lamisil At] 30 gm TP BID #2 tube 03/29/17 Unknown Rx Triamcinolone 0.1% [Kenalog 0.1% 1 applic TP TID #2 tube 03/29/17 Unknown Rx CREAM] Ibuprofen [Motrin] 600 mg PO Q8H PRN #30 tablet 04/12/17 Unknown Rx traMADol [Ultram] 50 mg PO Q6HR PRN #8 tablet 06/07/17 Unknown Rx Azithromycin [Zithromax Z-KENNETH] 250 mg PO DAILY #6 tablet 06/15/17 Unknown Rx Benzonatate [Tessalon Perle] 100 mg PO Q6H PRN #20 capsule 06/15/17 Unknown Rx Ibuprofen [Motrin] 600 mg PO Q8H PRN #30 tablet 06/15/17 Unknown Rx Oseltamivir [Tamiflu] 75 mg PO BID #14 cap 06/15/17 Unknown Rx Acetaminophen 500 mg PO Q6H #30 capsule 06/29/17 Unknown Rx Diclofenac Sodium [Voltaren] 100 gm TP Q6H #1 gel..gram. 06/29/17 Unknown Rx Ibuprofen [Motrin] 600 mg PO Q8H PRN #30 tablet 07/14/17 Unknown Rx guaiFENesin [Mucinex] 600 mg PO BID PRN #20 tab.er.12h 07/14/17 Unknown Rx Ibuprofen 800 mg PO TID PRN #30 tablet 09/10/17 Unknown Rx Loratadine [Claritin] 10 mg PO DAILY #20 tablet 09/10/17 Unknown Rx ED Review of Systems ROS: Stated complaint: FEVER Other details as noted in HPI Constitutional: chills. denies: fever Eyes: denies: eye pain, eye discharge, vision change ENT: denies: ear pain, throat pain Respiratory: denies: cough, shortness of breath, wheezing Cardiovascular: denies: chest pain, palpitations Endocrine: no symptoms reported Gastrointestinal: denies: abdominal pain, nausea, diarrhea Genitourinary: denies: urgency, dysuria Musculoskeletal: myalgia. denies: back pain, joint swelling, arthralgia Skin: denies: rash, lesions Neurological: denies: headache, weakness, paresthesias Psychiatric: denies: anxiety, depression Hematological/Lymphatic: denies: easy bleeding, easy bruising Physical Exam - Physical Exam Vital Signs: Vital Signs 09/10/17 12:05 Temperature 97.8 F Pulse Rate 80 Respiratory 16 Rate Blood Pressure 122/69 O2 Sat by Pulse 98 Oximetry Physical Exam: GENERAL: Alert and oriented x3, no apparent distress, Normal Gait, atraumatic. HEAD: Head is normocephalic and a-traumatic. EYES: Extra ocular muscles are intact. Pupils are equal, round, and reactive to light and accommodation. EARS: symetrical, atraumatic, non tender, ear canal clear and moderate cerumen, tympanic membrance non inflamed. gross auditory nml bilaterally. NOSE: Nose symetrical, Nontender,Nares appeared normal. MOUTH:Mouth is well hydrated and without lesions. Tonsils nonerythematous or swollen, Uvula midline, Tongue not elevated. Mucous membranes are moist. Posterior pharynx clear, no exudate or lesions. Patent airways. NECK: Supple. Non edematous, No lymphadenopathy or thyromegaly. No C-spine tenderness LUNGS: Symetrical with respiration, No wheezing, no rales or crackles, CTAB. HEART: S1, S2 present, regular rate and rhythm without murmur, no rubs, no gallops. Non tender to palpation EXTREMITIES/MUSCULOSKELETAL: No cyanosis, clubbing, rash, lesions or edema. Full ROM bilaterally. UE/LE Pulses 2+ bilaterally. NEUROLOGIC: The patient is cooperative with no focal neurologic deficits. Normal speech. Normal sensation in bilateral upper and lower extremities, No loss of sensation, SKIN: Warm and dry, No lesions, No ulceration or induration present. ED Course Vital Signs 09/10/17 12:05 Temperature 97.8 F Pulse Rate 80 Respiratory 16 Rate Blood Pressure 122/69 O2 Sat by Pulse 98 Oximetry ED Medical Decision Making - Medical Decision Making 41-year-old male, stable, no focal neuro deficit presents with myalgia from fatigue. ED course: Discussed with the patient to get some rest, takes some multivitamins and increase water hydration. Vital signs are normal patient is in no acute distress. Patient in no respiratory distress and ED. he had no signs of weakness. I discussed the patient to return to ED if any worsening symptoms. I discussed Claritin for runny nose. Patient understands all instructions given, I agrees to follow up with primary care physician and return if worsen symptoms. Critical care attestation.: If time is entered above; I have spent that time in minutes in the direct care of this critically ill patient, excluding procedure time. ED Disposition Clinical Impression: Myalgia Disposition: - TO HOME OR SELFCARE Is pt being admited?: No Does the pt Need Aspirin: No Condition: Stable Instructions: Musculoskeletal Pain (ED), Trigger Point Pain (ED), Fatigue (ED) , Upper Respiratory Infection (ED) Additional Instructions: Make sure to follow up with the primary care physician as discussed. Take all your medications as you've been prescribed. If you have any worsening symptoms or develop new symptoms please return to ED immediately. Prescriptions: Ibuprofen 800 mg PO TID PRN #30 tablet PRN Reason: Pain Loratadine [Claritin] 10 mg PO DAILY #20 tablet Referrals: PRIMARY CARE, [Primary Care Provider] - 3-5 Days [facility] [Outside] - 3-5 Days [facility] [Outside] - 3-5 Days [facility] [Outside] - 3-5 Days Forms: Work/School Release Form(ED) Time of Disposition: 19:58
[2017-09-10 20:16] VITALS: BP 117/64
== END 2017-09-10 20:14 | disposition home or self-care (01) ==
LOC: ED 12:01
DX: M79.1 Myalgia (principal); F17.200 Nicotine dependence, unspecified, uncomplicated
CPT/HCPCS: 99282